=== PATIENT | female | born 1960 | race Caucasian/White ===

== ENCOUNTER → 2016-07-25 | Outpatient (CLI) | payer MEDICARE, MEDICAID ==
[2016-01-03 07:38] VITALS: BP 118/70
[~2016-07-25] MED LIST: HYDR-971 PO
--- NOTE | 2016-07-27 09:08 | RAD ---
DATE: 07/25/2016 EXAM: MAMMO JIGAR SCREENING BILATERAL HISTORY: Routine screening, history of bilateral breast reduction COMPARISON: None available. This is dictated as a baseline exam This study was interpreted with the benefit of Computerized Aided Detection (CAD). FINDINGS: Breast Density: FATTY The Breast Parenchyma is primarily fatty replaced. Breast parenchyma level density A.. There are no dominant suspicious masses, suspicious microcalcifications or evidence of architectural distortion. Scattered benign-appearing calcifications identified in the bilateral breasts. Left breast biopsy marker identified. IMPRESSION: Benign findings BI-RADS CATEGORY: 2 BENIGN FINDING RECOMMENDED FOLLOW-UP: 12M 12 MONTH FOLLOW-UP PQRS compliance statement: Patient information was entered into a reminder system with a target due date 07/25/2017 for the next mammogram. Mammography is a sensitive method for finding small breast cancers, but it does not detect them all and is not a substitute for careful clinical examination. A negative mammogram does not negate a clinically suspicious finding and should not result in delay in biopsying a clinically suspicious abnormality. "Our facility is accredited by the [employer] Mammography Program."
== END | disposition home or self-care (01) ==
LOC: MAMMO 14:32
PROVIDERS: ATTEND Family Medicine
DX: Z12.31 Encounter for screening mammogram for malignant neoplasm of breast (principal)
CPT/HCPCS: 77063; G0202; 77067

== ENCOUNTER → 2018-01-28 | Outpatient (CLI) | payer OTHER, MEDICAID ==
[2016-01-03 07:38] VITALS: BP 118/70
[~2018-01-28] MED LIST changes: +HYDR-3165 PO; -HYDR-971 PO
--- NOTE | 2018-01-28 15:05 | CARD ---
MR#: [id number] Date of Study: 01/28/2018 Ordering Physician: JACKY GONSALEZ, Referring Physician: JACKY GONSALEZ, Tech: Asiya Marsh [facility] APPROVED REPORT EXAM: Two-dimensional and M-mode echocardiogram with Doppler and color Doppler. Other Information Quality : Technically LimitedHR: 55bpm Rhythm : NSRTechnically limited study due to smoking. INDICATION Murmur 2D DIMENSIONS RVDd3.0 (2.9-3.5cm)Left Atrium(2D)3.4 (1.6-4.0cm) IVSd1.2 (0.7-1.1cm)Aortic Root(2D)3.0 (2.0-3.7cm) LVDd4.5 (3.9-5.9cm)LVOT Diameter2.1 (1.8-2.4cm) PWd1.1 (0.7-1.1cm)LVDs2.8 (2.5-4.0cm) FS (%) 37.3 %SV62.5 ml LVEF(%)67.4 (>50%) M-Mode DIMENSIONS Left Atrium(MM)3.42 (2.5-4.0cm)Aortic Root3.32 (2.2-3.7cm) Aortic Valve AoV Peak Lito.208.6cm/sAoV VTI50.0cm AO Peak GR.17.4mmHgLVOT Peak Lito.82.9cm/s LVOT VTI 22.07cmAO Mean GR.11mmHg JOSHUA (VMAX)1.06cl6CPL (VTI)1.59cm2 Mitral Valve MV E Tcwqwdot87.9cm/sMV DECEL [id number] MV A Vghdzado43.3cm/sE/A Ratio1.0 MV A Gcyqjokv350wu Pulmonary Valve PV Peak Eauckxdw35.3cm/sPV Peak Grad.3mmHg Pulmonary Vein S1 Ooipgxib41.3cm/sD2 Llevqvgh95.4cm/s LEFT VENTRICLE The left ventricle is normal size. There is borderline to mild concentric left ventricular hypertroph y. The left ventricular systolic function is normal and the ejection fraction is within normal range. The Ejection Fraction is 60-65%. There is normal LV segmental wall motion. Transmitral Doppler flow pattern is Grade II-pseudonormal filling dynamics. RIGHT VENTRICLE The right ventricle is normal size. There is normal right ventricular wall thickness. The right ventr icular systolic function is normal. ATRIA The left atrium size is normal. The right atrium size is normal. The interatrial septum is intact wit h no evidence for an atrial septal defect or patent foramen ovale as noted on 2-D or Doppler imaging. AORTIC VALVE Moderate to heavy calcification of the aortic valve which appears trileaflet. Doppler and Color Flow revealed no significant aortic regurgitation. There is mild valvular aortic stenosis. Calculated aort ic valve area is 1.5 cm2 with maximum pressure gradient of 17 mmHg and mean pressure gradient of 11 m mHg. MITRAL VALVE The mitral valve is normal in structure and function. There is no evidence of mitral valve prolapse. There is no mitral valve stenosis. Doppler and Color-flow revealed trace mitral regurgitation. TRICUSPID VALVE The tricuspid valve is normal in structure and function. Doppler and Color Flow revealed no tricuspid valve regurgitation noted. There is no tricuspid valve prolapse or vegetation. There is no tricuspid valve stenosis. PULMONIC VALVE Pulmonic valve not well visualized. Doppler and Color Flow revealed trace pulmonic valvular regurgita tion. There is no pulmonic valvular stenosis. GREAT VESSELS The aortic root is normal in size. The ascending aorta is normal in size. The IVC is normal in size a nd collapses >50% with inspiration. PERICARDIAL EFFUSION There is no evidence of significant pericardial effusion. Critical Notification Critical Value: No <Conclusion> The left ventricular systolic function is normal and the ejection fraction is within normal range. Th e Ejection Fraction is 60-65%. There is normal LV segmental wall motion. There is mild valvular aortic stenosis. Calculated aortic valve area is 1.5 cm2 with maximum pressure gradient of 17 mmHg and mean pressure gradient of 11 mmHg. Signed by : Yonatan Dsouza, Electronically Approved : 01/28/2018 15:03:53
== END | disposition home or self-care (01) ==
LOC: ECHO 13:42
PROVIDERS: ATTEND Nurse Practitioner Family
DX: I35.0 Nonrheumatic aortic (valve) stenosis (principal); I70.0 Atherosclerosis of aorta; F17.200 Nicotine dependence, unspecified, uncomplicated
CPT/HCPCS: 93306

== ENCOUNTER → 2018-03-06 | Outpatient (CLI) | payer OTHER, MEDICAID ==
[2016-01-03 07:38] VITALS: BP 118/70
[~2018-03-06] VITALS: Ht 170.2 cm; Wt 84.4 kg
[~2018-03-06] MED LIST changes: +REGADENOSON 0.4 MG/5 ML DISP.SYRIN. IV ONE
--- NOTE | 2018-03-06 13:41 | RAD ---
MR#: [id number] Date of Study: 03/06/2018 Ordering Physician: ANGELINA CRUZ, Referring Physician: TORRIE ARSHAD Tech: SAMEERA Davies ARRT (R) (N) APPROVED REPORT Test Type: Pharmacological Stress Nurse/Tech: TRICIA Barr/ÁLVARO Davies Test Indications: HTN, HYPERLIPIDEMIA Cardiac History: High cholesterol, Hypertension, Diabetes Medications: See Electronic Medical Record Medical History: See Electronic Medical Record Resting ECG: SR Resting Heart Rate: 55 bpm Resting Blood Pressure: 151/72mmHg Pretest Chest Pain: None Nurse/Tech Notes SR Consent: The procedure was explained to the patient in lay terms. Informed consent was witnessed. Jun eout was entered into [employer]. History and Stress Test performed by SAMEERA Davies ARRT (R) (N) Pharm. Details Pharmacologic stress testing was performed using 0.4mg per 5ml of regadenoson given intravenously ove r 7-10 seconds. Stress Symptoms Dyspnea POST EXERCISE Reason for Termination: Infusion complete Target HR: Yes Max HR: 195 bpm 142% of Maximum Predicted HR: 137 bpm Exercise duration: 6 min:sec, Stage Max Blood Pressure: 164/81mmHg Blood Pressure response to exercise: Normal blood pressure response during stress. Chest Pain: No. Arrhythmia: No. ST Change: No. INTERPRETATION Stress EKG Conclusion: Baseline EKG showed sinus rhythm. No ischemic changes at peak stress. No arr hythmias. Imaging Protocol IMAGE PROTOCOL: Rest Tc-99m/stress Tc-99m 1 day Rest: Stress: Viability: Radiopharm.Tc99m GoryplugqWm92r Sestamibi Dose11.4mCi 32mCi Img Date 03/06/2018 03/06/2018 Inj-Img [id number]. 60min. Rest Admin Site:IV - Right AntecubitalAdministrator: SAMEERA Davies ARRT (R)(N) Stress Admin Site: IV - Right AntecubitalAdministrator: SAMEERA Davies ARRT (Altagracia)(N) STRESS DATA End Diast. Vol.88.0mlAv. Heart Rate66.0bpm LVEDV index BSA2.0mlCardiac Output0.1L/min End Syst. Vol.16.0mlCO Index BSA4.7L/min LVESV index BSA0.0mlMyocardial Cetc910.0g Eject. Kyshmast49.0% Stress Rates Pk. Fill Rate2.57EDV/secLVtime Pk. Fill 173.45msec Pk. Empty Rate3.35ESV/secLVtime Pk. Vxola335.89msec 03/13 Pk. Fill1.49EDV/sec Stress Scores Regional WT0.00Summed WT3.00 Regional WM0.00Summed WM0.00 LV Perfusion Scintigraphic images were technically difficult but appeared to show small reversible defect involvin g the apical wall consistent with ischemia. Wall Motion Normal left ventricle systolic function with ejection fraction calculated at 80%. LV Perf. Quant 17 Seg. SSS9.00 17 Seg. SRS1.00 17 Seg. SDS8.00 Stress Defect Extent (% LAD)9.40Rest Defect Extent (% LAD)0.00Rev. Defect Extent (% LAD)9.40 Stress Defect Extent (% LCX) 55.00Rest Defect Extent (% LCX)0.00Rev. Defect Extent (% LCX)55.00 Stress Defect Extent (% RCA)3.30Rest Defect Extent (% RCA)0.00Rev. Defect Extent (% RCA)3.30 Stress Defect Extent (% DENNISE)19.30Rest Defect Extent (% DENNISE)0.00Rev. Defect Extent (% DENNISE)19.30 Conclusion 1. Regadenoson cardioisotope stress test technically difficult but appeared to show small amount of a pical wall ischemia. 2. Normal left ventricular systolic function with ejection fraction calculated at 82%. 3. Low to intermediate risk for cardiac events. Signed by : Angelina Cruz, Electronically Approved : 03/06/2018 13:40:27
== END | disposition home or self-care (01) ==
LOC: NM 07:39
PROVIDERS: ATTEND Internal Medicine Cardiovascular Disease
DX: E78.5 Hyperlipidemia, unspecified (principal); E78.00 Pure hypercholesterolemia, unspecified; I10 Essential (primary) hypertension; E11.9 Type 2 diabetes mellitus without complications; F17.210 Nicotine dependence, cigarettes, uncomplicated
CPT/HCPCS: 78452; 93017; 96374; 96375; 96376; A9500; J2785

== ENCOUNTER → 2019-10-20 | Outpatient (CLI) | payer MEDICARE ==
[2016-01-03 07:38] VITALS: BP 118/70
[~2019-10-20] MED LIST changes: -REGADENOSON 0.4 MG/5 ML DISP.SYRIN. IV ONE
[2019-10-20 12:10] LABS: BASO # 0.1 x10^3/uL (0.0-0.2); BASO % 1 % (0-3); EOS # 0.3 x10^3/uL (0.0-0.7); EOS % 4 % (0-3); HEMATOCRIT 45.1 % (36.0-47.0); HEMOGLOBIN 15.2 g/dL (12.0-15.5); LYMPH # 2.8 x10^3/uL (1.0-4.8); LYMPH % 31 % (24-48); MEAN CORPUSCULAR HEMOGLOBIN 32 pg (25-35); MEAN CORPUSCULAR HGB CONC 34 g/dL (31-37); MEAN CORPUSCULAR VOLUME 96 fL (79-100); MONO # 0.5 x10^3/uL (0.0-1.1); MONO % 5 % (0-9); NEUT # 5.3 x10^3uL (1.8-7.7); NEUT % 59 % (31-73); PLATELET COUNT 217 x10^3/uL (140-400); RED CELL DISTRIBUTION WIDTH 13.6 % (11.5-14.5)
[2019-10-20 12:20] LABS: GFR 56.6; POTASSIUM 4.3 mmol/L (3.5-5.1); TOTAL BILIRUBIN 0.5 mg/dL (0.2-1.0)
[2019-10-20 16:25] LABS: FREE T4 1.08 ng/dL (0.76-1.46); THYROID STIM HORMONE (TSH) 4.733 uIU/mL (0.358-3.740)
[2019-10-21 02:07] LABS: HEMOGLOBIN A1C 7.7 % (4.8-5.6)
== END | disposition home or self-care (01) ==
LOC: LAB 10:03
PROVIDERS: ATTEND Physician Assistant
DX: Z79.899 Other long term (current) drug therapy (principal)
CPT/HCPCS: 36415; 80053; 80061; 80178; 83036; 84439; 84443; 84480; 85025

== ENCOUNTER → 2019-10-20 | Outpatient (CLI) | payer MEDICARE ==
[2016-01-03 07:38] VITALS: BP 118/70
--- NOTE | 2019-10-20 17:28 | RAD ---
HIP RIGHT 2 VIEW History: Fall, right hip pain Comparison: None. Findings: 2 views of the right hip are submitted. No convincing acute fracture or dislocation is identified by radiographs. There is some ossific irregularity along the anterior margin of the greater trochanter although fairly corticated margin. There is inferior lumbar degenerative disc disease and spondylosis Impression: 1. No convincing acute fracture is identified by radiographs, some irregularity of the right greater trochanter anteriorly although believed to be old. If there is persistent pain, MRI or CT evaluation may be beneficial. Electronically signed by: Neptali Cruz MD (10/20/2019 5:25 PM) [id number]
== END | disposition home or self-care (01) ==
LOC: PMG 12:28
PROVIDERS: ATTEND Family Medicine
DX: M25.551 Pain in right hip (principal); M51.36 Other intervertebral disc degeneration, lumbar region; M47.816 Spondylosis without myelopathy or radiculopathy, lumbar region
CPT/HCPCS: 73502

== ENCOUNTER → 2019-10-21 | Outpatient (CLI) | payer MEDICARE ==
[2016-01-03 07:38] VITALS: BP 118/70
--- NOTE | 2019-10-21 14:33 | RAD ---
Single standing AP view both knees and 2 views left knee without comparison for left knee pain. FINDINGS: There is no fracture, dislocation, or acute osseous abnormality of either knee. On the left, there is advanced osteoarthritis involving primarily the medial joint compartment, with more moderate osteoarthritic changes involving the lateral joint compartment and the patellofemoral compartments. On the right, there is minimal osteoarthritis. IMPRESSION: 1. Tricompartmental osteoarthritis on the left, with findings most notable at the medial joint compartment where there are advanced. Electronically signed by: Krishna Araujo MD (10/21/2019 2:30 PM) [id number]
== END | disposition home or self-care (01) ==
LOC: DXRAD 13:52
PROVIDERS: ATTEND Orthopaedic Surgery
DX: M17.12 Unilateral primary osteoarthritis, left knee (principal)
CPT/HCPCS: 73560; 73565

== ENCOUNTER → 2020-09-05 | Outpatient (CLI) | payer MEDICARE ==
[2016-01-03 07:38] VITALS: BP 118/70
--- NOTE | 2020-09-05 09:56 | RAD ---
EXAM: Bilateral lower extremity arterial Doppler sonogram. HISTORY: Claudication. Cigarette smoking history. Diabetes. Atherosclerosis. TECHNIQUE: Melo scale and color Doppler sonographic imaging lower extremity arteries with spectral an alysis was performed. COMPARISON: None. FINDINGS: There are biphasic and triphasic waveforms throughout the lower extremity arteries. There i s an elevated peak systolic velocity within the left common femoral artery, measuring 175 cm/s. There are normal peak systolic velocities throughout the remainder of the lower extremity arteries. There is no arterial occlusion. There is a prominent left inguinal lymph node measuring 3.8 cm. This mainta ins a benign fatty hilum and thin cortex, favoring a physiologic etiology. IMPRESSION: Doppler findings suggesting mild stenosis involving the right common femoral artery. No a dditional hemodynamically significant stenosis or arterial occlusion is seen. Electronically signed by: Ingrid Lewis MD (09/05/2020 9:54 AM) [id number]
== END ==
LOC: US 08:39
PROVIDERS: ATTEND Family Medicine
DX: I70.213 Atherosclerosis of native arteries of extremities with intermittent claudication, bilateral legs (principal); R59.0 Localized enlarged lymph nodes
CPT/HCPCS: 93925

== ENCOUNTER 2020-12-30 11:41 | Emergency (ER) | payer MEDICARE ==
[~2020-12-30] VITALS: Ht 165.1 cm; Wt 85.0 kg
[2020-12-30 11:59] VITALS: BP 136/73
--- NOTE | 2020-12-30 12:25 | PHYS DOC ---
Past History Past Medical History: Diabetes, Hypertension Past Surgical History: No Surgical History Alcohol Use: Rarely Drug Use: None General Adult EDM: Chief Complaint: MECHANICAL FALL HPI: HPI: Patient is a 60-year-old female who presents to the emergency department for left sided rib pain. Patient reports that on Saturday she tripped over a wheelchair and fell and started having left-sided rib pain yesterday. Patient rates her pain 9 out of 10. She has been taking ibuprofen. She denies nausea, vomiting, shortness of breath, hitting her head, loss of consciousness. Review of Systems: Review of Systems: HENT: See HPI Respiratory: See HPI Cardiovascular: see hpi Musculoskeletal: See HPI Neurologic: See HPI Allergies: Allergies: Allergies Coded Allergies Type Severity Reaction Last Updated Verified No Known Drug Allergies 12/30/20 No Physical Exam: PE: Constitutional: Well developed, well nourished, no acute distress, non-toxic appearance. [] HENT: Normocephalic, atraumatic, bilateral external ears normal, oropharynx moist, no oral exudates, nose normal. [] Eyes: PERRL, EOMI, conjunctiva normal, no discharge. [] Neck: Normal range of motion, no tenderness, supple, no stridor. [] Cardiovascular:Heart rate regular rhythm, no murmur [] Lungs & Thorax: Bilateral breath sounds clear to auscultation, no flail chest, no crepitus, pain with palpation to left lower posterior ribs [] Abdomen: Bowel sounds normal, soft, no tenderness, no masses, no pulsatile masses. [] Skin: Warm, dry, no erythema, no rash. [] Back: No tenderness, normal range of motion Extremities: No tenderness, no cyanosis, no clubbing, ROM intact, no edema. [] Neurologic: Alert and oriented X 3, normal motor function, normal sensory function, no focal deficits noted. [] Psychologic: Affect normal, judgement normal, mood normal. [] Current Patient Data: Vital Signs: Vital Signs Date Time Temp Pulse Resp B/P (MAP) Pulse Ox O2 Delivery O2 Flow Rate FiO2 12/30/20 11:59 98.2 65 18 136/73 (94) 95 Room Air EKG: EKG: [] Radiology/Procedures: Radiology/Procedures: []PROCEDURE: RIBS LEFT 2 view left rib detail series Clinical indications: Left-sided rib pain FINDINGS: There are nondisplaced fractures of the lateral aspect of the left sixth rib and the lateral aspect of the left fifth rib and the lateral aspect of the left 11th rib. No pleural effusion or pneumothorax is seen within the left side. IMPRESSION: Left rib cage fractures. Electronically signed by: Lionel Augustin MD (12/30/2020 12:28 PM) [id number] DICTATED AND SIGNED BY: LIONEL AUGUSTIN MD DATE: 12/30/20 1226 CC: VICENTE MANZANO APRN; KACIE ASCENCIO MD ~MTH0 0 Heart Score: C/O Chest Pain: N/A Risk Factors: Risk Factors: DM, Current or recent (<one month) smoker, HTN, HLP, family history of CAD, obesity. Risk Scores: Score 0 - 3: 2.5% MACE over next 6 weeks - Discharge Home Score 4 - 6: 20.3% MACE over next 6 weeks - Admit for Clinical Observation Score 7 - 10: 72.7% MACE over next 6 weeks - Early Invasive Strategies Course & Med Decision Making: Course & Med Decision Making Pertinent Labs and Imaging studies reviewed. (See chart for details) [] Patient presents to the emergency department for left-sided rib pain after falling 5 days ago. An x-ray was performed of her ribs that showed nondisplaced left fifth, sixth and 11th rib fractures. Patient given incentive spirometer and training.Patient is stable and well appearing, she is ambulatory with steady gait. Patient discharged home with pain medication. Patient advised to take ibuprofen for her mild pain.advised to apply ice. Advised to follow-up with her primary care provider. I discussed with patient all findings and diagnostic testing as well as the need to follow-up with PCP for further evaluation and treatment or return to the ER if any new or worsening symptoms. Strict return precautions were also discussed at length. Patient voiced understanding and agreement with the plan. Patient is hemodynamically stable at the time of disposition. Dragon Disclaimer: Dragjoyce Disclaimer: This electronic medical record was generated, in whole or in part, using a voice recognition dictation system. Departure Departure: Impression: Primary Impression: Rib fracture Qualified Codes: S22.42XA - Multiple fractures of ribs, left side, initial encounter for closed fracture Disposition: HOME / SELF CARE / HOMELESS Condition: GOOD Referrals: KACIE ASCENCIO MD (PCP) Patient Instructions: Rib Fracture Additional Instructions: You were seen in the emergency department for left-sided rib pain following a fall. An x-ray was performed that showed left 5th, 6th, and 11th rib fractures. You can take Ibuprofen for mild pain and are being discharged home with [place] for severe pain. This medication is hydrocodone and Tylenol combination tablet. Do not take any additional Tylenol with this medication. Do not take this medication when you need to be alert, driving a vehicle or with alcohol as it may cause sedation. You were provided with an incentive spirometer training in the emergency department please use this as directed at home to help prevent developing a pneumonia. You can also apply ice or heating pads. Please follow- up with your primary care provider tomorrow regarding your ER visit. Return to the emergency department if you develop worsening of your pain, chest pain, shortness of breath, high fevers refractory to treatment, cough pain or worsening concerns. EMERGENCY DEPARTMENT GENERAL DISCHARGE INSTRUCTIONS Thank you for coming to [facility] (ED) today and trusting us with you care. We trust that you had a positivie experience in our Emergency Department. If you wish to speak to the department management, you may call the director at [phone]. YOUR FOLLOW UP INSTRUCTIONS ARE FOLLOWS: 1. Do you have a private Doctor? If you do not have a private doctor, please ask for a resource list of physicians or clinics that may be able to assist you with follow up care. 2. The Emergency Physician has interpreted your x-rays. The X-Ray specialist will also review them. If there is a change in the findings, you will be notified in 48 hours when at all possible. 3. A lab test or culture has been done, your results will be reviewed and you will be notified if you need a change in treatment. ADDITIONAL INSTRUCTIONS AND INFORMATION: 1. Your care today has been supervised by a physician who is specially trained in emergency care. Many problems require more than one evaluation for a complete diagnosis and treatment. We recommend that you schedule your follow up appointment as recommended to ensure complete treatment of you illness or injury. If you are unable to obtain follow up care and continue to have a problem, or if your condition worsens, we recommend that you return to the ED. 2. We are not able to safely determine your condition over the phone nor are we able to give sound medical advice over the phone. For these safety reasons, if you call for medical advice we will ask you to come to the ED for further evaluation. 3. If you have any questions regarding these discharge instructions please call the ED at [phone]. SAFETY INFORMATION: In the interest of safety, wellness, and injury prevention; we encourage you to wear your sealbelt, if you smoke; quite smoking, and we encourage family to use a protective helmet for bicycling and other sporting events that present an increased risk for head injury. IF YOUR SYMPTOMS WORSEN OR NEW SYMPTOMS DEVELOP, OR YOU HAVE CONCERNS ABOUT YOUR CONDITION; OR IF YOUR CONDITION WORSENS WHILE YOU ARE WAITING FOR YOUR FOLLOW UP APPOINTMENT; EITHER CONTACT YOUR PRIMARY CARE DOCTOR, THE PHYSICIAN WHOSE NAME AND NUMBER YOU WERE GIVEN, OR RETURN TO THE ED IMMEDIATELY. Scripts Hydrocodone Bit/Acetaminophen (HYDROCODONE-APAP 5-325 ) 1 Each Tablet 1 TAB PO PRN Q6HRS PRN for PAIN for 3 Days, #12 TAB 0 Refills Prov: VICENTE MANZANO APRN 12/30/20 VICENTE MANZANO APRN Dec 30, 2020 12:25
--- NOTE | 2020-12-30 12:31 | RAD ---
2 view left rib detail series Clinical indications: Left-sided rib pain FINDINGS: There are nondisplaced fractures of the lateral aspect of the left sixth rib and the latera l aspect of the left fifth rib and the lateral aspect of the left 11th rib. No pleural effusion or pn eumothorax is seen within the left side. IMPRESSION: Left rib cage fractures. Electronically signed by: Willard Augustin MD (12/30/2020 12:28 PM) [id number]
[2020-12-30] MEDS ORDERED: HYDR-2155 PO (12:47)
== END 2020-12-30 12:55 | disposition home or self-care (01) ==
LOC: ER 11:41
DX: S22.42XA Multiple fractures of ribs, left side, initial encounter for closed fracture (principal); E11.9 Type 2 diabetes mellitus without complications; I10 Essential (primary) hypertension; W01.0XXA Fall on same level from slipping, tripping and stumbling without subsequent striking against object, initial encounter; Y93.89 Activity, other specified; Y92.89 Other specified places as the place of occurrence of the external cause; Y99.8 Other external cause status
CPT/HCPCS: 71100; 99283-25

== ENCOUNTER 2021-03-16 16:27 | Inpatient (IN) | payer MEDICARE ==
[~2021-03-16] VITALS: Ht 170.2 cm; Wt 79.6 kg
[~2021-03-16 16:27] MED LIST changes: +HYDR-2155 PO
[2021-03-16] MEDS ORDERED: IV NORMAL SALINE 1,000ML 1,000 ML IV ONE ×4 (16:45→19:30)
[2021-03-16 17:40] LABS: BASO # 0.1 x10^3/uL (0.0-0.2); BASO % 1 % (0-3); EOS # 0.2 x10^3/uL (0.0-0.7); EOS % 1 % (0-3); HEMATOCRIT 37.6 % (36.0-47.0); HEMOGLOBIN 12.3 g/dL (12.0-15.5); LYMPH # 1.1 x10^3/uL (1.0-4.8); LYMPH % 7 % (24-48); MEAN CORPUSCULAR HEMOGLOBIN 31 pg (25-35); MEAN CORPUSCULAR HGB CONC 33 g/dL (31-37); MEAN CORPUSCULAR VOLUME 96 fL (79-100); MONO # 0.8 x10^3/uL (0.0-1.1); MONO % 5 % (0-9); NEUT # 13.4 x10^3uL (1.8-7.7); NEUT % 86 % (31-73); PLATELET COUNT 217 x10^3/uL (140-400); RED BLOOD COUNT 3.91 x10^6/uL (3.50-5.40); RED CELL DISTRIBUTION WIDTH 13.5 % (11.5-14.5); WHITE BLOOD COUNT 15.6 x10^3/uL (4.0-11.0)
[2021-03-16 17:46] LABS: CALCIUM 9.5 mg/dL (8.5-10.1); CREATININE 3.2 mg/dL (0.6-1.0); GFR 14.7; POTASSIUM 3.4 mmol/L (3.5-5.1)
--- NOTE | 2021-03-16 17:46 | RAD ---
STUDY: CT head without contrast INDICATION: Altered mental status. COMPARISON: None. TECHNIQUE: Axial CT imaging through the head without the use of intravenous contrast. Sagittal and co sonido reformats were obtained. One or more of the following individualized dose reduction techniques were utilized for this examinat ion: 1. Automated exposure control 2. Adjustment of the mA and/or kV according to patient size 3. Use of iterative reconstruction technique. FINDINGS: No acute intracranial hemorrhage. No CT evidence for an acute cortical infarction. No mass effect, mi dline shift or hydrocephalus. Carotid siphon calcific atherosclerosis. Sequela of a remote right fron ruth ann craniotomy. Mucosal thickening and fluid within the paranasal sinuses. IMPRESSION: 1. No acute intracranial abnormality by CT. 2. Layering fluid and mucosal thickening involving the paranasal sinuses can be seen in the setting of active sinusitis. Electronically signed by: ELVIA PEREZ MD (03/16/2021 5:44 PM) [facility]
[2021-03-16 17:50] LABS: BARBITURATES NEG (NEG); BENZODIAZEPINES NEG (NEG); CANNABINOIDS POS (NEG); COCAINE NEG (NEG); METHADONE NEG (NEG); OPIATES NEG (NEG); PHENCYCLIDINE NEG (NEG)
[2021-03-16 17:54] LABS: ALBUMIN 2.5 g/dL (3.4-5.0); ALBUMIN/GLOBULIN RATIO 0.5 (1.0-1.7); MAGNESIUM 2.3 mg/dL (1.8-2.4); TOTAL BILIRUBIN 0.4 mg/dL (0.2-1.0); TOTAL PROTEIN 7.2 g/dL (6.4-8.2)
[2021-03-16 17:55] LABS: AMPHETAMINE/METHAMPHETAMINE NEG (NEG)
--- NOTE | 2021-03-16 18:09 | RAD ---
XR CHEST 1V History: Reason: AMS / Spl. Instructions: / History: Comparison: December 15, 2010 Findings: Patchy left mid lung opacities. Prominence the right hilum. No pleural effusion. No pneumothorax. Nor mal heart size. Impression: 1. Patchy left midlung opacities, represent pneumonia. Recommend follow-up to ensure resolution. 2. Prominence of the right hilar, may relate to enlarged vasculature, lymphadenopathy or mass. Recom mend attention on follow-up. Alternatively, CT can further evaluate. Electronically signed by: Stevenson Etienne DO (03/16/2021 6:07 PM) [facility]LISA
--- NOTE | 2021-03-16 18:11 | EKG ---
[address] [address] Test Date: 2021-03-16 Test Time: 16:52:43 Pat Name: MARCELO RUSH Department: Room: Gender: F Except[employer] Needs Teacher: ESDRAS : 1960 Requested By: NEETA CHEUNG Order Number: [id number] Reading MD: Torres Gamboa Measurements Intervals [place] Rate: 71 P: 8 ND: 162 QRS: 44 QRSD: 90 T: 51 QT: 400 QTc: 440 Interpretive Statements SINUS RHYTHM NORMAL ECG RI6.02 No previous ECG available for comparison Electronically Signed On 03-17-2021 14:30:49 [employer] by Torres Gamboa
--- NOTE | 2021-03-16 18:37 | PHYS DOC ---
Past History Past Medical History: Diabetes, Hypertension (STACIE CHEUNG APRN) Past Medical History: Dementia, Diabetes (NIRALI GARCIA MD) Past Surgical History: No Surgical History (STACIE CHEUNG APRN) Alcohol Use: Rarely Drug Use: None (STACIE CHEUNG APRN) Adult General Chief Complaint Chief Complaint: HYPERGLYCEMIA HPI HPI Patient is a 60-year-old female patient with history of diabetes type 2, hypertension, who presents to the ED today via EMS to be evaluated for hyperglycemia and altered mental status. It is unknown how long symptoms have been going on. I am getting most of my information from the RN. EMS states patient is noncompliant with his diabetes and hypertension treatment. (STACIE CHEUNG APRN) Review of Systems Review of Systems Constitutional: Unable to assess due to mentation Eyes: Unable to assess due to mentation HENT: Unable to assess due to mentation Respiratory: Unable to assess due to mentation Cardiovascular: Unable to assess due to mentation GI: Unable to assess due to mentation : Unable to assess due to mentation Musculoskeletal: Unable to assess due to mentation Integument: Unable to assess due to mentation Neurologic: EMS reports altered mental status Endocrinology: EMS reports hyperglycemia All other systems were reviewed and found to be within normal limits, except as documented in this note. (STACIE CHEUNG APRN) Current Medications Current Medications Current Medications Medications (Trade) Dose Ordered Sig/Ramirez Start Time Stop Time Status Last Admin Dose Admin Sodium Chloride 1,000 ml @ 1,000 mls/hr 1X ONCE 03/16/21 16:45 03/16/21 17:44 DC (STACIE CHEUNG APRN) Allergies Allergies Allergies Coded Allergies Type Severity Reaction Last Updated Verified No Known Drug Allergies 12/30/20 No (STACIE CHEUNG APRN) Physical Exam Physical Exam Constitutional: Well developed, well nourished, no acute distress, non-toxic appearance. [] HENT: Normocephalic, atraumatic, bilateral external ears normal, no oral exudates, nose normal. Dry oropharynx, cracked lips Eyes: PERRLA, EOMI, conjunctiva normal, no discharge. [] Neck: Normal range of motion, no tenderness, supple, no stridor. [] Cardiovascular:Heart rate regular rhythm Lungs & Thorax: Bilateral breath sounds clear to auscultation [] Abdomen: Bowel sounds normal, soft, no tenderness, no masses, no pulsatile masses. [] Skin: Warm, dry, no erythema, no rash. [] Back: No tenderness, no CVA tenderness. [] Extremities: No tenderness, no cyanosis, no clubbing, ROM intact, no edema. [] Neurologic: Alert and oriented X 2, normal motor function, normal sensory function, no focal deficits noted. Cranial nerves II through XII intact Psychologic: Affect normal, judgement normal, mood normal. [] (JONATANSTACIE Baum PANTRY GOODS WORKER) Current Patient Data Vital Signs Vital Signs Date Time Temp Pulse Resp B/P (MAP) Pulse Ox O2 Delivery O2 Flow Rate FiO2 03/16/21 16:53 97.6 73 16 121/56 (77) 95 Lab Results Laboratory Tests Test 03/16/21 16:30 03/16/21 17:05 Glucose (Fingerstick) 481 mg/dL (70-99) H White Blood Count 15.6 x10^3/uL (4.0-11.0) H Red Blood Count 3.91 x10^6/uL (3.50-5.40) Hemoglobin 12.3 g/dL (12.0-15.5) Hematocrit 37.6 % (36.0-47.0) Mean Corpuscular Volume 96 fL (79-100) Mean Corpuscular Hemoglobin 31 pg (25-35) Mean Corpuscular Hemoglobin Concent 33 g/dL (31-37) Red Cell Distribution Width 13.5 % (11.5-14.5) Platelet Count 217 x10^3/uL (140-400) Neutrophils (%) (Auto) 86 % (31-73) H Lymphocytes (%) (Auto) 7 % (24-48) L Monocytes (%) (Auto) 5 % (0-9) Eosinophils (%) (Auto) 1 % (0-3) Basophils (%) (Auto) 1 % (0-3) Neutrophils # (Auto) 13.4 x10^3uL (1.8-7.7) H Lymphocytes # (Auto) 1.1 x10^3/uL (1.0-4.8) Monocytes # (Auto) 0.8 x10^3/uL (0.0-1.1) Eosinophils # (Auto) 0.2 x10^3/uL (0.0-0.7) Basophils # (Auto) 0.1 x10^3/uL (0.0-0.2) Platelet Estimate Pending Sodium Level 131 mmol/L (136-145) L Potassium Level 3.4 mmol/L (3.5-5.1) L Chloride Level 96 mmol/L (98-107) L Carbon Dioxide Level 21 mmol/L (21-32) Anion Gap 14 (6-14) Blood Urea Nitrogen 49 mg/dL (7-20) H Creatinine 3.2 mg/dL (0.6-1.0) H Estimated GFR (Cockcroft-Gault) 14.7 BUN/Creatinine Ratio 15 (6-20) Glucose Level 469 mg/dL (70-99) H Calcium Level 9.5 mg/dL (8.5-10.1) Magnesium Level 2.3 mg/dL (1.8-2.4) Total Bilirubin 0.4 mg/dL (0.2-1.0) Aspartate Amino Transferase (AST) 16 U/L (15-37) Alanine Aminotransferase (ALT) 18 U/L (14-59) Alkaline Phosphatase 123 U/L (46-116) H Total Protein 7.2 g/dL (6.4-8.2) Albumin 2.5 g/dL (3.4-5.0) L Albumin/Globulin Ratio 0.5 (1.0-1.7) L Urine Opiates Screen Neg (NEG) Urine Methadone Screen Neg (NEG) Urine Barbiturates Neg (NEG) Urine Phencyclidine Screen Neg (NEG) Urine Amphetamine/Methamphetamine Neg (NEG) Urine Benzodiazepines Screen Neg (NEG) Urine Cocaine Screen Neg (NEG) Urine Cannabinoids Screen Pos (NEG) Urine Ethyl Alcohol Neg (NEG) (STACIE CHEUNG PANTRY GOODS WORKER) EKG EKG [address] Cortes sinus rhythm heart rate 71 no STEMI [] (STACIE CHEUNG APRN) EKG EKG ordered and interpreted by myself at 1351 hrs. as sinus rhythm at 75 bpm, unremarkable intervals, no axis deviation, no obvious ischemic findings, no STEMI (BRYAN CORTES DO) Radiology/Procedures Radiology/Procedures []PROCEDURE: CT HEAD WO CONTRAST STUDY: CT head without contrast INDICATION: Altered mental status. COMPARISON: None. TECHNIQUE: Axial CT imaging through the head without the use of intravenous contrast. Sagittal and coronal reformats were obtained. One or more of the following individualized dose reduction techniques were utilized for this examination: 1. Automated exposure control 2. Adjustment of the mA and/or kV according to patient size 3. Use of iterative reconstruction technique. FINDINGS: No acute intracranial hemorrhage. No CT evidence for an acute cortical infarction. No mass effect, midline shift or hydrocephalus. Carotid siphon calcific atherosclerosis. Sequela of a remote right frontal craniotomy. Mucosal thickening and fluid within the paranasal sinuses. IMPRESSION: 1. No acute intracranial abnormality by CT. 2. Layering fluid and mucosal thickening involving the paranasal sinuses can be seen in the setting of active sinusitis. Electronically signed by: ELVIA PEREZ MD (03/16/2021 5:44 PM) [facility] DICTATED AND SIGNED BY: ELVIA PEREZ MD DATE: 03/16/211739 CC: STACIE CHEUNG APRN; KACIE ASCENCIO MD ~MTH0 0 (STACIE CHEUNG APRN) Heart Score C/O Chest Pain: N/A Risk Factors: Risk Factors: DM, Current or recent (<one month) smoker, HTN, HLP, family history of CAD, obesity. Risk Scores: Risk Factors: DM, Current or recent (<one month) smoker, HTN, HLP, family history of CAD, obesity. (STACIE CHEUNG APRN) Course & Med Decision Making Course & Med Decision Making Pertinent Labs and Imaging studies reviewed. (See chart for details) This is a 60-year-old noncompliant type II diabetic, presenting today to be evaluated for hypoglycemia and altered mental status. Patient is alert and oriented x1-2. She appears very dehydrated with dry mucous membranes. Vitals on arrival to the ED temperature 97.6 heart rate 73, blood pressure 121/56, O2 sats 95%. CT of the head is negative for any acute findings, noted for sinusitis, chest x-ray is negative CBC with a WBC of 15.6 and a left shift. CMP with glucose of 469, anion gap is normal, CO2 is normal, creatinine 3.2 with BUN of 49. 2 L of IV fluids were ordered currently infusing. Given 10 units of regular insulin. Spoke with Dr. Vivar, he stated this patient needs to be transferred to [place] due to acute renal failure Spoke with Dr. Vaz who accepted patient at [facility] [address] Fishman awaiting bed at [place] (STACIE CHEUNG PANTRY GOODS WORKER) Course & Med Decision Making Hyperglycemia- awaiting for bed at [facility]- See Notes Stacie Cheung. Prior shift change. Pt. request meds for sleep..." I needs some Fucking sleep.. " Ativan 2 mg ordered. Still awaiting bed at [facility] at 2300 hrs. - Accepted by Dr. Boland at [facility] Impression: 1. Hyperglycemia - DM 481- now 150's 2. Dementia 3. Pneumonia 4. Acute on Chronic Renal Failure Bun 49/3.[address] Cortes at shift change. (NIRALI GARCIA MD) Course & Med Decision Making Assumed care of patient after comprehensive signout from overnight physician AM 03/17/2020 I reviewed entirety of ER chart and personally repeated aspects of history and physical exam. Patient initially extremely somnolent from recently administered doxepin medication Later in shift, patient became more vocal and delirious. Patient tried to get up out of bed numerous times and agitated Patient verbally redirectable. She later reported chest pain and given this and ongoing dry nonproductive cough, chest x-ray and EKG performed with chest x-ray concerning for potential pneumonia. I'm concerned about aspiration given patient presentation and ongoing coughing and concern at times tolerating her own secretions, IV Unasyn started Given concern of patient's delirious state, the 5 mg IV Haldol administered with significant improvement in patient's mentation. Repeat dose later in the shift of additional 5 mg IV Haldol given with further improvement ////////////////// I assumed care of patient on 03/18/2021. No acute overnight events. Still pending possible transfer to [facility] for admission I reviewed entirety of ER case. Patient's mentation improved since Versed administration. Continuing to treat for aspiration pneumonia. Patient had elevated troponin that trended down I consulted cardiology attending and reviewed nonconcerning EKGs in conjunction with elevated troponin, no immediate indication for cath or transfer to cath capable facility As such I contacted hospitalist [facility] and reviewed presenting illness, interventions so far and need for hospitalization which I feel is safe here at [facility]. Dr. Vivar ultimately excepted patient under his care (BRYAN CORTES DO) Donion Disclaimer Dragon Disclaimer This electronic medical record was generated, in whole or in part, using a voice recognition dictation system. (STACIE CHEUNG PANTRY GOODS WORKER) Departure Departure: Impression: Primary Impression: Altered mental status Additional Impressions: Hyperglycemia ARF (acute renal failure) Aspiration pneumonia Disposition: ADMITTED INPATIENT Admitting Physician: Wilian Vivar (BRYAN CORTES DO) Condition: STABLE Referrals: KACIE ASCENCIO MD (PCP) Dragon Disclaimer This chart was dictated in whole or in part using Voice Recognition software in a busy, high-work load, and often noisy Emergency Department environment. It may contain unintended and wholly unrecognized errors or omissions. (NIRALI GARCIA MD) Problem Qualifiers Primary Impression: Altered mental status Altered mental status type: unspecified Qualified Codes: R41.82 - Altered mental status, unspecified Additional Impressions: ARF (acute renal failure) Acute renal failure type: unspecified Qualified Codes: N17.9 - Acute kidney failure, unspecified STACIE CHEUNG APRN Mar 16, 2021 18:37 NIRALI GARCIA MD Mar 16, 2021 22:30 BRYAN CORTES DO Mar 17, 2021 13:53
[2021-03-16 18:48] LABS: BILIRUBIN,URINE NEG (NEG); CLARITY,URINE CLEAR; COLOR,URINE YELLOW; GLUCOSE,URINE 500 mg/dL (NEG); NITRITE,URINE NEG (NEG); RBC,URINE OCC /HPF (0-2)
[2021-03-16 18:49] LABS: BACTERIA,URINE FEW /HPF (0-FEW); SQUAMOUS EPITHELIAL CELL,UR MOD /LPF
[2021-03-16] MEDS ORDERED: INSULIN REGULAR 100 UNIT/ML 3ML VIAL. IV ONE (19:00)
[2021-03-16] MEDS ORDERED: DEXTROSE 50% 25 GM / 50ML DISP.SYRIN. IV PRN (19:30)
[2021-03-16] MEDS ORDERED: IV NORMAL SALINE 50ML 50 ML ONE (20:11)
[2021-03-16] MEDS ORDERED: cefTRIAXone SODIUM 1 GM VIAL ONE (20:12)
--- NOTE | 2021-03-16 20:17 | RAD ---
Exam: CT of abdomen and pelvis without contrast INDICATION: Acute renal failure TECHNIQUE: Sequential axial images through the abdomen and pelvis obtained without IV contrast. Sagit ruth ann and coronal reformatted images were reconstructed from the axial data and reviewed. Exposure: One or more of the following in the visualized dose reduction techniques were utilized for this examination: 1. Automated exposure control 2. Adjustment of the MA and/or KV according to patient size 3. Use of iterative of reconstructive technique Comparisons: None FINDINGS: Heart size is normal. No pericardial effusion. Patchy consolidative changes noted at the left lower l obe. No pleural effusion. Evaluation of solid organs limited secondary to noncontrast technique. Liver, spleen, pancreas, gallbladder and adrenals are unremarkable. No perinephric inflammation or hydronephrosis. No renal or ureteral calculi are identified. Bladder is partially distended and not well evaluated. Uterus is nonenlarged. No abnormal adnexal mas s. Diverticulosis the sigmoid colon without evidence of acute diverticulitis. Appendix is nonidentified. No free intra-abdominal air or fluid. No obstruction. Abdominal aorta has normal course and caliber. No enlarged intra-abdominal lymph nodes are identified. No suspicious osseous lesions or acute fractures. IMPRESSION: 1. Consolidative changes noted at the left lower lobe favored to be infectious or inflammatory in et iology. 2. No acute process identified within the abdomen or pelvis. Electronically signed by: Marina Corado MD (03/16/2021 8:14 PM) [facility]
[2021-03-16 20:51] LABS: % BANDS 7 % (0-9); % LYMPHS 9 % (24-48); % METAS 1 % (0-0); % MONOS 7 % (0-10); % SEGS 76 % (35-66)
[2021-03-16 20:52] LABS: PLT ESTIMATE ADEQUATE (ADEQUATE)
[2021-03-16] MEDS: INSULIN GLARGINE SYRINGE. SQ SCH (21:23)
[2021-03-16] MEDS ORDERED: AZITHROMYCIN 250 MG TABLET. PO ONE (23:00)
[2021-03-16] MEDS ORDERED: ALBUTEROL SULFATE 8GM INHALER. INH ONE (23:00)
[2021-03-16] MEDS ORDERED: IV RINGERS SOLUTION,LACTATED 1,000 ML IV ONE (23:15)
[2021-03-16 23:42] LABS: INFLUENZA A PATIENT NEGATIVE (NEGATIVE); INFLUENZA B PATIENT NEGATIVE (NEGATIVE)
[2021-03-16] MEDS ORDERED: DOXEPIN HCL 10 MG CAPSULE PO SCH (23:45)
[2021-03-17] MEDS ORDERED: IV RINGERS SOLUTION,LACTATED 1,000 ML IV SCH (05:45)
[2021-03-17 08:32] LABS: BASO # 0.1 x10^3/uL (0.0-0.2); BASO % 1 % (0-3); EOS # 0.3 x10^3/uL (0.0-0.7); EOS % 2 % (0-3); HEMATOCRIT 33.9 % (36.0-47.0); LYMPH # 1.4 x10^3/uL (1.0-4.8); LYMPH % 11 % (24-48); MEAN CORPUSCULAR HEMOGLOBIN 31 pg (25-35); MEAN CORPUSCULAR HGB CONC 33 g/dL (31-37); MEAN CORPUSCULAR VOLUME 96 fL (79-100); MONO % 8 % (0-9); NEUT # 10.2 x10^3uL (1.8-7.7); NEUT % 79 % (31-73); PLATELET COUNT 206 x10^3/uL (140-400); RED BLOOD COUNT 3.55 x10^6/uL (3.50-5.40); RED CELL DISTRIBUTION WIDTH 13.7 % (11.5-14.5)
[2021-03-17 08:47] LABS: CALCIUM 8.3 mg/dL (8.5-10.1); CREATININE 1.9 mg/dL (0.6-1.0); GFR 26.9; POTASSIUM 3.1 mmol/L (3.5-5.1)
[2021-03-17] MEDS: INSULIN LISPRO 300 UNITS/3 ML VIAL. SQ SCH ×2 (12:37→17:00)
[2021-03-17] MEDS ORDERED: POTASSIUM CL 40MEQ IN 0.9%NACL 1,000 ML IV ONE (14:00)
[2021-03-17] MEDS ORDERED: HALOPERIDOL LACT 5 MG/ML VIAL. IM ONE (14:00)
--- NOTE | 2021-03-17 14:32 | RAD ---
EXAMINATION: Chest radiograph. VIEWS: Single AP view of the chest COMPARISON: 03/16/2021 INDICATION:60 years, Female, cough. FINDINGS: Stable cardiomediastinal silhouette. Increased patchy confluent left perihilar and basilar opacities with new subtle opacities in the right perihilar and basilar areas. No pleural effusion or pneumothor ax. No acute osseous process. IMPRESSION: 1. Worsening patchy bilateral mid and basilar opacities concerning for worsening pneumonia. Recommend follow-up to ensure resolution. 2. Redemonstrated prominence of the right anthony, may be from vascular engorgement, lymphadenopathy or mass. Recommend attention on follow-up. This can also be further evaluated with CT with IV contrast. Electronically signed by: Marcellus Tavares DO (03/17/2021 2:29 PM) [id number]
--- NOTE | 2021-03-17 15:31 | EKG ---
[address] [address] Test Date: 2021-03-17 Test Time: 13:47:31 Pat Name: MARCELO RUSH Department: Room: Gender: F Livestock Trucker: : 1960 Requested By: BRYAN CORTES Order Number: [id number] Reading MD: Yonatan Dsouza MD Measurements Intervals [place] Rate: 75 P: 8 NV: 154 QRS: 38 QRSD: 90 T: 27 QT: 364 QTc: 409 Interpretive Statements SINUS RHYTHM Electronically Signed On 04-03-2021 18:14:46 AMMONIA STILL OPERATOR by Yonatan Dsouza MD
[2021-03-17] MEDS: AMPICILLIN/SULBACTAM 3 GM in IV NORMAL SALINE 100ML 100 ML IV SCH (18:09)
[2021-03-17] MEDS ORDERED: MIDAZOLAM HCL PF 5 MG/5 ML VIAL. IV ONE ×2 (18:15→21:30)
[2021-03-17] MEDS ORDERED: DOXEPIN HCL 25 MG CAPSULE PO SCH (21:00)
[2021-03-17] MEDS: INSULIN GLARGINE SYRINGE. SQ SCH (21:13)
[2021-03-18] MEDS ORDERED: LABETALOL 20 MG/4 ML DISP.SYRIN. ONE (00:17)
[2021-03-18] MEDS ORDERED: LABETALOL 20 MG/4 ML DISP.SYRIN. IVP ONE ×3 (00:30→22:00)
[2021-03-18] MEDS ORDERED: ASPIRIN CHEWABLE 81 MG TABLET. PO ONE (05:15)
[2021-03-18] MEDS ORDERED: IV DEXTROSE 5% - 0.9 % NACL 1,000 ML IV ONE (05:15)
--- NOTE | 2021-03-18 05:49 | EKG ---
[address] [address] Test Date: 2021-03-18 Test Time: 01:26:37 Pat Name: MARCELO RUSH Department: Room: Gender: F Electronics Recycler: KAN : 1960 Requested By: JANA JEREZ Order Number: [id number] Reading MD: Garo Tay Measurements Intervals [place] Rate: 70 P: 39 CO: 172 QRS: 39 QRSD: 90 T: 47 QT: 434 QTc: 472 Interpretive Statements SINUS RHYTHM Electronically Signed On 03-25-2021 17:57:50 SOLAR ENERGY SYSTEM INSTALLER by Garo Tay
[2021-03-18] MEDS: AMPICILLIN/SULBACTAM 3 GM in IV NORMAL SALINE 100ML 100 ML IV SCH ×5 (06:14→23:33)
[2021-03-18 07:12] LABS: BASO # 0.1 x10^3/uL (0.0-0.2); BASO % 1 % (0-3); EOS # 0.4 x10^3/uL (0.0-0.7); EOS % 3 % (0-3); HEMATOCRIT 33.9 % (36.0-47.0); LYMPH # 1.3 x10^3/uL (1.0-4.8); LYMPH % 11 % (24-48); MEAN CORPUSCULAR HEMOGLOBIN 31 pg (25-35); MEAN CORPUSCULAR HGB CONC 32 g/dL (31-37); MEAN CORPUSCULAR VOLUME 96 fL (79-100); MONO # 1.3 x10^3/uL (0.0-1.1); MONO % 11 % (0-9); NEUT # 8.8 x10^3uL (1.8-7.7); NEUT % 75 % (31-73); PLATELET COUNT 208 x10^3/uL (140-400); RED BLOOD COUNT 3.54 x10^6/uL (3.50-5.40); RED CELL DISTRIBUTION WIDTH 14.4 % (11.5-14.5); WHITE BLOOD COUNT 11.8 x10^3/uL (4.0-11.0)
[2021-03-18 07:19] LABS: CALCIUM 8.4 mg/dL (8.5-10.1); CREATININE 1.2 mg/dL (0.6-1.0); GFR 45.7; POTASSIUM 3.7 mmol/L (3.5-5.1)
[2021-03-18 08:47] LABS: % ATYL 5 % (0-0); % BANDS 5 % (0-9); % EOS 3 % (0-5); % LYMPHS 15 % (24-48); % MONOS 6 % (0-10); % SEGS 66 % (35-66); PLT ESTIMATE ADEQUATE (ADEQUATE)
[2021-03-18] MEDS ORDERED: ACETAMINOPHEN 325 MG TABLET PO PRN (09:15)
[2021-03-18] MEDS ORDERED: NITROGLYCERIN SUBLINGUAL 0.4 MG BOTTLE OF 25. SL PRN (09:15)
[2021-03-18] MEDS: INSULIN LISPRO 300 UNITS/3 ML VIAL. SQ SCH ×3 (09:54→17:23)
--- NOTE | 2021-03-18 10:30 | RAD ---
AP portable chest radiograph 03/18/2021 Clinical History: Pneumonia. An AP erect portable digital radiograph of the chest was obtained. Comparison study is dated 03/17/2021. The cardiac silhouette is mildly enlarged. The thoracic aorta is tortuous. Bilateral perihilar infilt rates are seen which have not significantly changed. No pneumothorax or pleural effusion is noted. Th e osseous structures are unchanged. Impression: Bilateral perihilar infiltrates, unchanged. Electronically signed by: Beny Mattson MD (03/18/2021 10:27 AM) [id number]
[2021-03-18] MEDS ORDERED: MIDAZOLAM HCL PF 5 MG/5 ML VIAL. IV ONE ×3 (11:30→22:15)
--- NOTE | 2021-03-18 12:08 | HP ---
DATE OF SERVICE: 03/18/2021 ADMIT DATE: 03/18/2021 ATTENDING PHYSICIAN: Dr. Vivar. CHIEF COMPLAINT: Obtundation and shortness of breath. HISTORY OF PRESENT ILLNESS: The patient is a 60-year-old female with multiple medical issues. She has been in the Emergency Department for the last 2 days. She was in the process of being evaluated for hyperglycemia, aspiration pneumonia, altered mentation and generalized not feeling well. She was very agitated requiring sedation. She had elevation of cardiac enzymes without any EKG changes. We still were in the process of trying to get her to the [facility] ICU; however, no beds were available. Early this morning, Dr. Gilman called me and stated that they have gotten her stabilized, sugars are better. She has gotten several doses of intravenous antibiotic. They wanted her admitted to our ICU. I told him I would be happy to admit her if a bed opens up. I actually went down and saw her in the ED. She was agitated, confused, thrashing about. I could not get much history from her. No family is available. PAST MEDICAL HISTORY: Significant for hyperglycemia, substance abuse, noncompliance of meds and essential hypertension. ALLERGIES: She has no recorded drug allergies. CURRENT REGIMEN: Unclear and unknown. No family is available. I do not think she has been taking her meds. SOCIAL HISTORY: Smoking history as noted. Drug use, otherwise expected in the past. We could not confirm this. FAMILY HISTORY: Unobtainable. REVIEW OF SYSTEMS: Unobtainable. PHYSICAL EXAMINATION: GENERAL: When I saw her, this is a 60-year-old female who is thrashing about and unable to lay still. She states that "I am dying." VITAL SIGNS: Actually stable with a blood pressure 149/50. Her pulse is 73 and regular. She was afebrile, oxygen saturation 95% on 2 liters by nasal cannula. HEENT: Head is without trauma. Pupils are reactive. Sclerae nonicteric. Septum xanthelasma noted on exam. Oropharynx clear. NECK: No stridor. LUNGS: Shallow respirations, coarse rhonchi bilaterally. CARDIOVASCULAR: Showed regular heart tones. No gallop. ABDOMEN: Soft. No guarding. EXTREMITIES: Without edema. NEUROLOGIC: Very confused and agitated, thrashing about. She is nonambulatory. Capone catheter is in place. SKIN: Otherwise, warm and dry. PERTINENT LABORATORY STUDIES: Admission hemoglobin was 12.3 grams. With hydration, it came down to 11.0 g/dL. White count 11,800. Nonfasting blood sugars have been elevated on admission, it was down to 209 mg/dL this morning. Urinalysis showed some protein and sugars. Toxicology screen positive for cannabinoids. Serology negative for influenza A, B and coronavirus by PCR. Chest x-ray was more telltale. She had bilateral perihilar infiltrates consistent with probable aspiration pneumonia. The obligatory CT of the head showed no acute strokes or bleeds. ASSESSMENT: 1. A 60-year-old female with obtundation due to probable drug use. 2. Bilateral hilar pneumonia. 3. Incidental finding of elevated troponins due to stress demand ischemia. 4. Chronic obstructive pulmonary disease. 5. Hypertension. 6. Altered mentation. 7. Noncompliance of meds. 8. History of diabetes and hypertension. PLAN: 1. Admit to our ICU. 2. Continue IV antibiotics as ordered. 3. Glucose control. 4. Formal Cardiology consultation has already been entertained through the ED. KRISTINA DR: AMADO/tiffanie TID: [id number]
[2021-03-18] MEDS ORDERED: HALOPERIDOL LACT 5 MG/ML VIAL. IVP ONE (12:15)
--- NOTE | 2021-03-18 14:05 | EKG ---
[address] [address] Test Date: 2021-03-18 Test Time: 11:54:06 Pat Name: MARCELO RUSH Department: Room: ED [place] [id number] Gender: F Document Photographer: CHIQUI : 1960 Requested By: BRYAN CORTES Order Number: [id number] Reading MD: Garo Tay Measurements Intervals [place] Rate: 70 P: 0 ND: 158 QRS: 38 QRSD: 92 T: 51 QT: 424 QTc: 461 Interpretive Statements SINUS RHYTHM Electronically Signed On 03-25-2021 17:53:07 ADMINISTRATIVE SERVICES OFFICER by Garo Tay
[2021-03-18] MEDS: MORPHINE SULFATE 4 MG/ML DISP.SYRIN. IV PRN ×3 (14:41→21:04)
[2021-03-18] MEDS: IV RINGERS SOLUTION,LACTATED 1,000 ML IV SCH (19:11)
[2021-03-18] MEDS ORDERED: MIDAZOLAM HCL PF 5 MG/5 ML VIAL. ONE (20:57)
[2021-03-18] MEDS: INSULIN GLARGINE SYRINGE. SQ SCH (21:05)
[2021-03-19] VITALS (19 sets, daily range): BP systolic 128–190; BP diastolic 54–94
[2021-03-19] MEDS ORDERED: MIDAZOLAM HCL PF 2 MG/2 ML VIAL. IVP PRN (02:15)
[2021-03-19] MEDS ORDERED: LURA40TA PO (02:24)
[2021-03-19] MEDS ORDERED: PANT20TA4 PO (02:24)
[2021-03-19] MEDS ORDERED: METF-658 PO (02:24)
[2021-03-19] MEDS ORDERED: BUSP10TA PO (02:24)
[2021-03-19] MEDS ORDERED: ESCI20TA8 PO (02:24)
[2021-03-19] MEDS ORDERED: QUIN5TAB13 PO (02:24)
[2021-03-19] MEDS ORDERED: LEVO75TA5 PO (02:24)
[2021-03-19] MEDS ORDERED: TRAZ-120 PO (02:24)
[2021-03-19] MEDS ORDERED: LITH300C PO (02:24)
[2021-03-19] MEDS: IV RINGERS SOLUTION,LACTATED 1,000 ML IV SCH (03:30)
[2021-03-19] MEDS: MORPHINE SULFATE 4 MG/ML DISP.SYRIN. IV PRN ×2 (03:30→19:40)
[2021-03-19] MEDS: LABETALOL 20 MG/4 ML DISP.SYRIN. IVP PRN ×2 (03:31→15:24)
[2021-03-19] MEDS: HALOPERIDOL LACT 5 MG/ML VIAL. IVP PRN ×2 (06:14→14:34)
[2021-03-19] MEDS: guaiFENesin DM 200MG/20MG 10 ML SYRUP PO PRN (06:14)
[2021-03-19] MEDS: AMPICILLIN/SULBACTAM 3 GM in IV NORMAL SALINE 100ML 100 ML IV SCH ×3 (06:15→20:05)
[2021-03-19 08:29] LABS: BASO % 0 % (0-3); EOS # 0.4 x10^3/uL (0.0-0.7); EOS % 3 % (0-3); HEMATOCRIT 33.3 % (36.0-47.0); HEMOGLOBIN 10.9 g/dL (12.0-15.5); LYMPH # 1.6 x10^3/uL (1.0-4.8); LYMPH % 13 % (24-48); MEAN CORPUSCULAR HEMOGLOBIN 31 pg (25-35); MEAN CORPUSCULAR HGB CONC 33 g/dL (31-37); MEAN CORPUSCULAR VOLUME 96 fL (79-100); MONO # 1.1 x10^3/uL (0.0-1.1); MONO % 9 % (0-9); NEUT # 8.9 x10^3uL (1.8-7.7); NEUT % 74 % (31-73); PLATELET COUNT 202 x10^3/uL (140-400); RED BLOOD COUNT 3.48 x10^6/uL (3.50-5.40); RED CELL DISTRIBUTION WIDTH 14.6 % (11.5-14.5)
--- NOTE | 2021-03-19 08:34 | PDOC2 ---
CONSULT DOS: DATE: 03/19/21 TIME: 08:34 Reason for Consult: Elevated troponin level Referring Physician: Dr. Vivar Chief Complaint Mental status changes Source: Chart review, Patient Problem List Problems Medical Problems: (1) Altered mental status Status: Acute (2) ARF (acute renal failure) Status: Acute (3) Aspiration pneumonia Status: Acute (4) Hyperglycemia Status: Acute History of Present Illness 60-year-old female with history of diabetes mellitus type 2 presented with mental status changes and obtundation and was found to be hypoglycemic. She apparently has been noncompliant with her medications. She denied any chest pain, orthopnea/PND, palpitations or syncope. Her troponin level was slightly elevated prompting cardiology consultation. Past Medical History Hypertension Diabetes mellitus type 2 Bipolar disorder Family History Hypertension Social History Patient denied any smoking or drug abuse but admitted to occasional alcohol intake Current Medications Current Medications Sodium Chloride 1,000 ml @ 1,000 mls/hr 1X ONCE IV Last administered on 03/16/21at 16:45; Start 03/16/21 at 16:45; Stop 03/16/21 at 17:44; Status DC Sodium Chloride 1,000 ml @ 1,000 mls/hr 1X ONCE IV Last administered on 03/16/21at 20:20; Start 03/16/21 at 16:45; Stop 03/16/21 at 17:44; Status DC Insulin Human Regular (HumuLIN R VIAL) 10 unit 1X ONCE IV Last administered on 03/16/21at 20:21; Start 03/16/21 at 19:00; Stop 03/16/21 at 19:09; Status DC Sodium Chloride 1,000 ml @ 1,000 mls/hr 1X ONCE IV Last administered on 03/16/21at 22:33; Start 03/16/21 at 19:15; Stop 03/16/21 at 20:14; Status DC Ceftriaxone Sodium 1 gm/ Sodium Chloride 50 ml @ 100 mls/hr 1X ONCE IV Last administered on 03/16/21at 20:35; Start 03/16/21 at 19:30; Stop 03/16/21 at 19:59; Status DC Insulin Glargine (Lantus Syringe) 10 unit QHS SQ Last administered on 03/18/21at 21:05; Start 03/16/21 at 21:00 Sodium Chloride 1,000 ml @ 0 mls/hr 1X ONCE IV ; Start 03/16/21 at 19:30; Stop 03/16/21 at 19:31; Status DC Insulin Human Lispro (HumaLOG) 0-9 UNITS TIDWMEALS SQ Last administered on 03/18/21at 17:23; Start 03/17/21 at 08:00 Dextrose (Dextrose 50%-Water Syringe) 12.5 gm PRN Q15MIN PRN IV SEE COMMENTS; Start 03/16/21 at 19:30 Sodium Chloride 50 ml @ As Directed STK-MED ONCE .ROUTE ; Start 03/16/21 at 20:11; Stop 03/16/21 at 20:12; Status DC Ceftriaxone Sodium (Rocephin) 1 gm STK-MED ONCE .ROUTE ; Start 03/16/21 at 20:12; Stop 03/16/21 at 20:12; Status DC Azithromycin (Zithromax) 500 mg 1X ONCE PO Last administered on 03/16/21at 23:19; Start 03/16/21 at 23:00; Stop 03/16/21 at 23:14; Status DC Albuterol Sulfate (Ventolin Hfa Inhaler) 2 puff 1X ONCE INH ; Start 03/16/21 at 23:00; Stop 03/16/21 at 23:14; Status DC Lorazepam (Ativan Inj) 2 mg 1X ONCE IVP Last administered on 03/16/21at 23:19; Start 03/16/21 at 23:15; Stop 03/16/21 at 23:16; Status DC Lactated Ringer's 1,000 ml @ 160 mls/hr 1X ONCE IV Last administered on 03/17/21at 00:34; Start 03/16/21 at 23:15; Stop 03/17/21 at 05:29; Status DC Doxepin HCl (SINEquan) 50 mg QHS PO Last administered on 03/17/21at 00:26; Start 03/16/21 at 23:45; Stop 03/17/21 at 16:47; Status DC Lactated Ringer's 1,000 ml @ 100 mls/hr Q10H IV Last administered on 03/17/21at 07:01; Start 03/17/21 at 05:45; Stop 03/17/21 at 15:44; Status DC Haloperidol Lactate (Haldol) 5 mg 1X ONCE IM Last administered on 03/17/21at 14:18; Start 03/17/21 at 14:00; Stop 03/17/21 at 14:02; Status DC Potassium Chloride/Sodium Chloride 1,000 ml @ 125 mls/hr 1X ONCE IV Last administered on 03/17/21at 15:26; Start 03/17/21 at 14:00; Stop 03/17/21 at 21:59; Status DC Ampicillin Sodium/ Sulbactam Sodium 3 gm/Sodium Chloride 100 ml @ 200 mls/hr Q6HRS IV Last administered on 03/19/21at 06:15; Start 03/17/21 at 18:00 Doxepin HCl (SINEquan) 25 mg QHS PO ; Start 03/17/21 at 21:00; Stop 03/17/21 at 18:53; Status DC Midazolam HCl (Versed) 5 mg 1X ONCE IV Last administered on 03/17/21at 19:05; Start 03/17/21 at 18:15; Stop 03/17/21 at 18:19; Status DC Midazolam HCl (Versed) 5 mg 1X ONCE IV Last administered on 03/17/21at 21:42; Start 03/17/21 at 21:30; Stop 03/17/21 at 21:35; Status DC Labetalol HCl (Normodyne) 20 mg 1X ONCE IVP Last administered on 03/18/21at 00:30; Start 03/18/21 at 00:30; Stop 03/18/21 at 00:31; Status DC Labetalol HCl (Normodyne) 20 mg STK-MED ONCE .ROUTE ; Start 03/18/21 at 00:17; Stop 03/18/21 at 00:17; Status DC Labetalol HCl (Normodyne) 20 mg 1X ONCE IVP Last administered on 03/18/21at 06:24; Start 03/18/21 at 05:15; Stop 03/18/21 at 05:16; Status DC Dextrose/Sodium Chloride 1,000 ml @ 100 mls/hr 1X ONCE IV Last administered on 03/18/21at 06:23; Start 03/18/21 at 05:15; Stop 03/18/21 at 15:14; Status DC Aspirin (Aspirin Chewable) 324 mg 1X ONCE PO Last administered on 03/18/21at 06:24; Start 03/18/21 at 05:15; Stop 03/18/21 at 05:16; Status DC Acetaminophen (Tylenol) 650 mg PRN Q4HRS PRN PO FEVER > 100.3'F; Start 03/18/21 at 09:15; Stop 03/19/21 at 09:14 Nitroglycerin (Nitrostat) 0.4 mg PRN Q5MIN PRN SL CHEST PAIN; Start 03/18/21 at 09:15; Stop 03/19/21 at 09:14 Midazolam HCl (Versed) 5 mg 1X ONCE IV Last administered on 03/18/21at 11:36; Start 03/18/21 at 11:30; Stop 03/18/21 at 11:31; Status DC Haloperidol Lactate (Haldol) 5 mg 1X ONCE IVP Last administered on 03/18/21at 13:02; Start 03/18/21 at 12:15; Stop 03/18/21 at 12:16; Status DC Morphine Sulfate (Morphine 4mg Syringe) 4 mg PRN Q2HR PRN IV PAIN Last administered on 03/18/21at 21:04; Start 03/18/21 at 14:45; Stop 03/19/21 at 02:16; Status DC Lactated Ringer's 1,000 ml @ 125 mls/hr Q8H IV Last administered on 03/19/21at 03:30; Start 03/18/21 at 19:15 Midazolam HCl (Versed) 5 mg 1X ONCE IV Last administered on 03/18/21at 23:36; Start 03/18/21 at 21:00; Stop 03/18/21 at 21:02; Status DC Midazolam HCl (Versed) 5 mg STK-MED ONCE .ROUTE ; Start 03/18/21 at 20:57; Stop 03/18/21 at 20:57; Status DC Labetalol HCl (Normodyne) 20 mg 1X ONCE IVP Last administered on 03/18/21at 23:37; Start 03/18/21 at 22:00; Stop 03/18/21 at 22:01; Status DC Midazolam HCl (Versed) 5 mg 1X ONCE IV ; Start 03/18/21 at 22:15; Stop 03/18/21 at 22:16; Status DC Labetalol HCl (Normodyne) 20 mg PRN Q6HRS PRN IVP HYPERTENSION Last administered on 03/19/21at 03:31; Start 03/19/21 at 02:15 Morphine Sulfate (Morphine 4mg Syringe) 4 mg PRN Q2HR PRN IV PAIN Last administered on 03/19/21at 03:30; Start 03/19/21 at 02:15 Midazolam HCl (Versed) 2 mg PRN Q2HR PRN IVP AGITATION; Start 03/19/21 at 02:15; Stop 03/19/21 at 08:04; Status DC Haloperidol Lactate (Haldol) 5 mg PRN Q8HRS PRN IVP AGITATION Last administered on 03/19/21at 06:14; Start 03/19/21 at 02:15 Guaifenesin (Robitussin Dm) 10 ml PRN Q6HRS PRN PO COUGH 1st choice Last administered on 03/19/21at 06:14; Start 03/19/21 at 06:15 Benzonatate (Tessalon Perle) 100 mg PRN TID PRN PO COUGH 2ND CHOICE; Start 03/19/21 at 06:15 Midazolam HCl (Versed) 2 mg PRN Q2HR PRN IV AGITATION; Start 03/19/21 at 08:15 Lactobacillus Rhamnosus (Culturelle) 1 cap BID PO ; Start 03/19/21 at 21:00 Active Scripts Active Hydrocodone-Apap 5-325 (Hydrocodone Bit/Acetaminophen) 1 Each Tablet 1 Tab PO PRN Q6HRS PRN 3 Days [place] 5-325 Tablet (Hydrocodone Bit/Acetaminophen) 1 Each Tablet 1-2 Tab PO PRN Q6HRS PRN Reported Metformin Hcl Er (Metformin Hcl) 500 Mg Tab.er.24h 1 Tab PO BID Trazodone Hcl 50 Mg Tablet 1 Tab PO QHS Pantoprazole Sodium 20 Mg Tablet.dr 1 Tab PO DAILY Quinapril Hcl 5 Mg Tablet 1 Tab PO DAILY [place] Carbonate 300 Mg Capsule 1 Cap PO TID Buspirone Hcl 10 Mg Tablet 1 Tab PO BID Escitalopram Oxalate 20 Mg Tablet 1 Tab PO DAILY Levothyroxine Sodium 75 Mcg Tablet 1 Tab PO DAILY Latuda (Lurasidone Hcl) 40 Mg Tablet 1 Tab PO QHS Allergies: Coded Allergies: No Known Drug Allergies (Unverified , 12/30/20) PSYCHOLOGICAL ROS: YES: Behavioral Disorder Eyes: No: Loss of vision HEENT: No: Epistaxis Respiratory: No: Hemoptysis Cardiovascular: No: Chest Pain, Palpitations Gastrointestinal: No: Vomiting Genitourinary: No: [place] Neurological: No: Seizures Skin: No: Rash General: Alert, No acute distress HEENT: Atraumatic Lungs: Other (Scattered crepitations bilaterally) Heart: Regular rate Abdomen: Soft Extremities: No edema Psych/Mental Status: Mood NL VITALS Vital Signs Date Time Temp Pulse Resp B/P (MAP) Pulse Ox O2 Delivery O2 Flow Rate FiO2 03/19/21 06:12 64 6 141/54 (83) 95 Simple Mask 6.0 03/19/21 05:23 98.5 Labs Laboratory Tests Test 03/17/21 14:02 03/17/21 17:57 03/17/21 21:09 03/18/21 00:35 Glucose (Fingerstick) 145 mg/dL (70-99) 145 mg/dL (70-99) 203 mg/dL (70-99) Troponin I High Sensitivity 163 ng/L (4-50) Test 03/18/21 06:40 03/18/21 08:26 03/18/21 12:27 03/18/21 17:15 White Blood Count 11.8 x10^3/uL (4.0-11.0) Red Blood Count 3.54 x10^6/uL (3.50-5.40) Hemoglobin 11.0 g/dL (12.0-15.5) Hematocrit 33.9 % (36.0-47.0) Mean Corpuscular Volume 96 fL (79-100) Mean Corpuscular Hemoglobin 31 pg (25-35) Mean Corpuscular Hemoglobin Concent 32 g/dL (31-37) Red Cell Distribution Width 14.4 % (11.5-14.5) Platelet Count 208 x10^3/uL (140-400) Neutrophils (%) (Auto) 75 % (31-73) Lymphocytes (%) (Auto) 11 % (24-48) Monocytes (%) (Auto) 11 % (0-9) Eosinophils (%) (Auto) 3 % (0-3) Basophils (%) (Auto) 1 % (0-3) Neutrophils # (Auto) 8.8 x10^3uL (1.8-7.7) Lymphocytes # (Auto) 1.3 x10^3/uL (1.0-4.8) Monocytes # (Auto) 1.3 x10^3/uL (0.0-1.1) Eosinophils # (Auto) 0.4 x10^3/uL (0.0-0.7) Basophils # (Auto) 0.1 x10^3/uL (0.0-0.2) Segmented Neutrophils % 66 % (35-66) Band Neutrophils % 5 % (0-9) Lymphocytes % 15 % (24-48) Atypical Lymphocytes % (Manual) 5 % (0-0) Monocytes % 6 % (0-10) Eosinophils % 3 % (0-5) Platelet Estimate Adequate (ADEQUATE) Sodium Level 144 mmol/L (136-145) Potassium Level 3.7 mmol/L (3.5-5.1) Chloride Level 112 mmol/L (98-107) Carbon Dioxide Level 19 mmol/L (21-32) Anion Gap 13 (6-14) Blood Urea Nitrogen 29 mg/dL (7-20) Creatinine 1.2 mg/dL (0.6-1.0) Estimated GFR (Cockcroft-Gault) 45.7 Glucose Level 209 mg/dL (70-99) Calcium Level 8.4 mg/dL (8.5-10.1) Troponin I High Sensitivity 140 ng/L (4-50) Glucose (Fingerstick) 246 mg/dL (70-99) 240 mg/dL (70-99) 261 mg/dL (70-99) Assessment/Plan 1. Slight troponin elevation, most probably demand ischemia. Patient is currently chest pain-free. EKG without acute changes. 2D echo in 2018 showed LVEF 60 to 65% with mild aortic stenosis. Repeat 2D echo and ischemic evaluation could be considered as an outpatient. 2. Bilateral hilar pneumonia: Continue antibiotics per IM 3. COPD: Clinically stable 4. Diabetes mellitus type 2 presenting with hyperglycemia. Continue treatment per IM. 5. Hypertension: Controlled 6. Hypokalemia: Replace orally 7. Mental status changes, most probably metabolic encephalopathy, improved since admission Thank you for your consultation ANGELINA CRUZ MD Mar 19, 2021 08:34
[2021-03-19 08:37] LABS: CALCIUM 8.4 mg/dL (8.5-10.1); GFR 56.4; POTASSIUM 3.1 mmol/L (3.5-5.1)
[2021-03-19] MEDS: MIDAZOLAM HCL PF 5 MG/5 ML VIAL. IV PRN ×2 (10:03→12:12)
[2021-03-19] MEDS: INSULIN LISPRO 300 UNITS/3 ML VIAL. SQ SCH ×3 (10:12→17:16)
[2021-03-19] MEDS: NICOTINE 21MG PATCH. TD SCH (10:19)
--- NOTE | 2021-03-19 10:19 | PN ---
DATE: 03/19/2021 ATTENDING PHYSICIAN: Dr. Vivar. SUBJECTIVE: Very agitated, trying to climb out of bed. She is more awake. Unfortunately, she is ill and has very little coping mechanism. The deal with being uncomfortable. She insists on going home without any insight as to what is going to happen. She came to the ED. The family is unable to care for her given her degree of illness. She still has bilateral pneumonia. We are treating her. Followup x-ray has been ordered. OBJECTIVE FINDINGS: VITAL SIGNS: Blood pressure this morning is 128/60, pulse is 80 and regular. She is afebrile. Oxygen saturation 95% on 3 liters. HEENT: Head is without trauma. Pupils are reactive. Sclerae nonicteric. Oropharynx is clear. NECK: Supple, no bruits identified. LUNGS: Shallow respirations bilaterally. CARDIOVASCULAR: Showed distant heart tones. No gallops. ABDOMEN: Soft. EXTREMITIES: Without edema. NEUROLOGIC FINDINGS: Confused and agitated. PERTINENT LABORATORY STUDIES: This morning, her hemoglobin is 10.9 g/dL with a white count of 12,000. Electrolytes showed a sodium 142, potassium 3.1 mEq. Nonfasting blood sugar 243. Followup x-ray is pending. ASSESSMENT: A 60-year-old female with, 1. Bilateral pneumonia. 2. Obtundation due to drug use. 3. Noncompliance of meds. 4. Hyperglycemia due to noncompliance. 5. Chronic obstructive pulmonary disease. 6. Altered mentation, still confused. 7. History of diabetes and hypertension. PLAN: 1. We will discontinue the IV fluids. She is starting to get bloated. 2. Follow up chest x-ray. 3. Continue antibiotics. 4. Prognosis is quite guarded given her degree of difficulty to manage. EUGENIO DINH: Mabel TID: [id number]
[2021-03-19] MEDS: MIDAZOLAM HCL PF 2 MG/2 ML VIAL. IV PRN ×2 (14:38→17:11)
[2021-03-19] MEDS ORDERED: POTASSIUM CHLORIDE 20 MEQ TABLET.ER. PO ONE (15:15)
[2021-03-19] MEDS: POTASSIUM CHLORIDE 20MEQ 100 ML IV SCH ×2 (15:21→20:00)
--- NOTE | 2021-03-19 16:50 | RAD ---
AP portable chest radiograph 03/19/2021 Clinical History: Cough and shortness of breath. An AP erect portable digital radiograph of the chest was obtained. Comparison study is dated 03/18/2021. The cardiac silhouette is mildly enlarged. The thoracic aorta is tortuous. Bilateral perihilar infilt rates are seen which have not significantly changed. No pneumothorax or pleural effusion is noted. Th e osseous structures are unchanged. Impression: Bilateral perihilar infiltrates, unchanged. Electronically signed by: Beny Mattson MD (03/19/2021 4:48 PM) [id number]
[2021-03-19] MEDS: INSULIN GLARGINE SYRINGE. SQ SCH (21:00)
[2021-03-20] VITALS (23 sets, daily range): BP systolic 143–201; BP diastolic 61–95
[2021-03-20] MEDS: AMPICILLIN/SULBACTAM 3 GM in IV NORMAL SALINE 100ML 100 ML IV SCH ×5 (01:07→23:24)
[2021-03-20] MEDS: LACTOBACILLUS RHAMNOSUS GG 1 CAPSULE. PO SCH ×3 (01:08→20:32)
[2021-03-20] MEDS: LABETALOL 20 MG/4 ML DISP.SYRIN. IVP PRN ×2 (05:07→22:06)
[2021-03-20] MEDS: MORPHINE SULFATE 4 MG/ML DISP.SYRIN. IV PRN ×3 (05:45→15:34)
[2021-03-20] MEDS: NICOTINE 21MG PATCH. TD SCH (08:00)
--- NOTE | 2021-03-20 08:06 | PDOC ---
CARDIO Progress Notes Date & Time Date of Service DATE: 03/20/21 TIME: 08:05 Time of Evaluation 08:05 Subjective Notes c/o cough. No CP, palpitations Vitals Vitals Vital Signs Date Time Temp Pulse Resp B/P (MAP) Pulse Ox O2 Delivery O2 Flow Rate FiO2 03/20/21 07:11 63 20 155/73 (100) 96 03/20/21 06:29 Nasal Cannula 3.0 03/20/21 06:11 98.4 Weight Weight [ ] Input and Output I.O. Intake and Output 03/20/21 07:00 Intake Total 2000 ml Output Total 2850 ml Balance -850 ml Intake Oral 2000 ml Output Urine Total 2850 ml # Bowel Movements 4 Laboratory Labs Laboratory Tests Test 03/18/21 08:26 03/18/21 12:27 03/18/21 17:15 03/19/21 08:15 Glucose (Fingerstick) 246 mg/dL (70-99) 240 mg/dL (70-99) 261 mg/dL (70-99) White Blood Count 12.0 x10^3/uL (4.0-11.0) Red Blood Count 3.48 x10^6/uL (3.50-5.40) Hemoglobin 10.9 g/dL (12.0-15.5) Hematocrit 33.3 % (36.0-47.0) Mean Corpuscular Volume 96 fL (79-100) Mean Corpuscular Hemoglobin 31 pg (25-35) Mean Corpuscular Hemoglobin Concent 33 g/dL (31-37) Red Cell Distribution Width 14.6 % (11.5-14.5) Platelet Count 202 x10^3/uL (140-400) Neutrophils (%) (Auto) 74 % (31-73) Lymphocytes (%) (Auto) 13 % (24-48) Monocytes (%) (Auto) 9 % (0-9) Eosinophils (%) (Auto) 3 % (0-3) Basophils (%) (Auto) 0 % (0-3) Neutrophils # (Auto) 8.9 x10^3uL (1.8-7.7) Lymphocytes # (Auto) 1.6 x10^3/uL (1.0-4.8) Monocytes # (Auto) 1.1 x10^3/uL (0.0-1.1) Eosinophils # (Auto) 0.4 x10^3/uL (0.0-0.7) Basophils # (Auto) 0.0 x10^3/uL (0.0-0.2) Sodium Level 142 mmol/L (136-145) Potassium Level 3.1 mmol/L (3.5-5.1) Chloride Level 109 mmol/L (98-107) Carbon Dioxide Level 21 mmol/L (21-32) Anion Gap 12 (6-14) Blood Urea Nitrogen 14 mg/dL (7-20) Creatinine 1.0 mg/dL (0.6-1.0) Estimated GFR (Cockcroft-Gault) 56.4 Glucose Level 243 mg/dL (70-99) Calcium Level 8.4 mg/dL (8.5-10.1) Test 03/19/21 11:51 03/19/21 17:15 03/19/21 21:24 03/20/21 07:18 Glucose (Fingerstick) 211 mg/dL (70-99) 160 mg/dL (70-99) 166 mg/dL (70-99) 198 mg/dL (70-99) Microbiology Micro Microbiology 03/16/21 Urine Culture - Final, Complete Physical Exams HEENT: Neck Supple W Full Motion Chest: Symmetric Lungs: Other (rhonchi) Heart: RRR Abdomen: Soft N/T Extremities: No Edema Neurology: alert, oriented, follow commands Assessment Assessment 1. Slight troponin elevation; high sensitivity trop peak 163. most probably type II, demand ischemia. CP free. EKG without acute changes. 2D echo in 2018 showed LVEF 60 to 65% with mild aortic stenosis. Repeat 2D echo and ischemic evaluation could be considered as an outpatient. 2. Bilateral hilar pneumonia: Continue antibiotics per IM 3. COPD: Clinically stable 4. Diabetes mellitus type 2 presenting with hyperglycemia. Continue treatment per IM. 5. Hypertension: uncontrolled. Will add lisinopril for BP control 6. Hypokalemia, hypomagnesemia; replace 7. Mental status changes, most probably metabolic encephalopathy, improved since admission 8. Noncompliance, substance abuse. UDS + marijuana. RUY BROOKS APRN Mar 20, 2021 08:06
[2021-03-20] MEDS: BENZONATATE 100 MG CAPSULE. PO PRN ×2 (08:07→20:32)
[2021-03-20] MEDS: INSULIN LISPRO 300 UNITS/3 ML VIAL. SQ SCH ×3 (08:58→18:38)
[2021-03-20 09:14] LABS: CREATININE 0.8 mg/dL (0.6-1.0); GFR 72.9; MAGNESIUM 1.2 mg/dL (1.8-2.4)
[2021-03-20 09:16] LABS: POTASSIUM 2.8 mmol/L (3.5-5.1)
[2021-03-20] MEDS ORDERED: MAGNESIUM SULFATE 1 GM in IV DEXTROSE 5% 100 ML IV ONE (10:15)
[2021-03-20] MEDS ORDERED: POTASSIUM CHLORIDE 20 MEQ TABLET.ER. PO ONE (10:15)
[2021-03-20] MEDS ORDERED: MAGNESIUM SULFATE 1GM 100 ML IV ONE (10:30)
--- NOTE | 2021-03-20 10:32 | PN ---
DATE: 03/20/2021 ATTENDING PHYSICIAN: Dr. Vivar. SUBJECTIVE: The patient is fairly alert. She is very remorseful this morning. We had a first time in 4 days a valid conversation. She tells me she is on disability. She is diabetic. She has bipolar disorder. She takes insulin and lithium. Unfortunately, she is not compliant with her meds. She sees Dr. Nishant Vega sporadically. She continues to smoke. She also uses marijuana on a regular basis. In addition, there is a history of recreational cocaine use. OBJECTIVE FINDINGS: VITAL SIGNS: Blood pressure this morning is 153/62 mmHg, pulse is 64 and regular, oxygen saturation 95% on 3 liters by nasal cannula and her temperature is 98.4 degrees Fahrenheit. HEENT: Head is without trauma. Pupils are reactive. Sclerae nonicteric. Oropharynx is clear. NECK: Supple. LUNGS: Coarse rhonchi bilaterally. CARDIOVASCULAR: Showed regular heart tones. No gallops. ABDOMEN: Soft. EXTREMITIES: Without edema. NEUROLOGIC: Focally intact. Speech is fluent. She was actually calm this morning and not agitated. IMAGING: Followup chest x-ray yesterday shows bilateral perihilar infiltrates, very slow progress, unchanged from previous x-ray. LABORATORY STUDIES: Her potassium is diminished, oral supplement as well as magnesium have been ordered. ASSESSMENT: 1. A 60-year-old female with bilateral pneumonia, improving on antibiotics. 2. Probable aspiration. 3. Bipolar disorder. 4. Noncompliance of meds. 5. Polysubstance abuse. 6. Chronic obstructive pulmonary disease. 7. Altered mentation, resolved. 8. Uncontrolled diabetes, improved. 9. Essential hypertension. 10. Asymptomatic hypokalemia. PLAN: 1. We will discontinue the IV fluids. 2. Oral potassium and intravenous magnesium replacement. 3. Serial chemistry. 4. Echocardiogram. 5. Glucose control. 6. Continue antibiotics. 7. Discontinue Capone catheter. 8. We will wean down supplemental oxygen. AMADO/HIRA DR: AMADO/tiffanie TID: [id number] CC: NISHANT VEGA MD
[2021-03-20] MEDS: MIDAZOLAM HCL PF 2 MG/2 ML VIAL. IV PRN ×2 (13:46→20:32)
[2021-03-20] MEDS ORDERED: LISINOPRIL 20 MG TABLET PO SCH (15:00)
[2021-03-20] MEDS: guaiFENesin DM 200MG/20MG 10 ML SYRUP PO PRN (20:32)
[2021-03-20] MEDS: POTASSIUM CHLORIDE 20 MEQ TABLET.ER. PO SCH (20:32)
[2021-03-20] MEDS: INSULIN GLARGINE SYRINGE. SQ SCH (20:33)
[2021-03-20] MEDS: HALOPERIDOL LACT 5 MG/ML VIAL. IVP PRN (22:05)
[2021-03-21] VITALS (19 sets, daily range): BP systolic 128–185; BP diastolic 61–89
[2021-03-21] MEDS: guaiFENesin DM 200MG/20MG 10 ML SYRUP PO PRN ×2 (03:14→08:29)
[2021-03-21] MEDS: MORPHINE SULFATE 4 MG/ML DISP.SYRIN. IV PRN ×2 (03:15→05:35)
[2021-03-21] MEDS: AMPICILLIN/SULBACTAM 3 GM in IV NORMAL SALINE 100ML 100 ML IV SCH ×3 (05:35→17:24)
[2021-03-21] MEDS: BENZONATATE 100 MG CAPSULE. PO PRN (05:35)
--- NOTE | 2021-03-21 08:22 | PDOC ---
CARDIO Progress Notes Date & Time Date of Service DATE: 03/21/21 TIME: 08:21 Time of Evaluation 08:21 Subjective Notes Feeling better, no SOA. Has cough Vitals Vitals Vital Signs Date Time Temp Pulse Resp B/P (MAP) Pulse Ox O2 Delivery O2 Flow Rate FiO2 03/21/21 07:05 56 15 173/72 (105) 94 Nasal Cannula 3.0 03/20/21 19:49 98.5 Weight Weight [ ] Input and Output I.O. Intake and Output 03/21/21 07:00 Intake Total 1210 ml Output Total 1500 ml Balance -290 ml Intake Oral 1010 ml IV Total 200 ml Output Urine Total 1500 ml # Voids 4 # Bowel Movements 1 Laboratory Labs Laboratory Tests Test 03/19/21 11:51 03/19/21 17:15 03/19/21 21:24 03/20/21 07:18 Glucose (Fingerstick) 211 mg/dL (70-99) 160 mg/dL (70-99) 166 mg/dL (70-99) 198 mg/dL (70-99) Test 03/20/21 08:50 03/20/21 11:52 03/20/21 16:54 03/20/21 19:54 Sodium Level 141 mmol/L (136-145) Potassium Level 2.8 mmol/L (3.5-5.1) Chloride Level 105 mmol/L (98-107) Carbon Dioxide Level 21 mmol/L (21-32) Anion Gap 15 (6-14) Blood Urea Nitrogen 10 mg/dL (7-20) Creatinine 0.8 mg/dL (0.6-1.0) Estimated GFR (Cockcroft-Gault) 72.9 Glucose Level 205 mg/dL (70-99) Calcium Level 8.0 mg/dL (8.5-10.1) Magnesium Level 1.2 mg/dL (1.8-2.4) Glucose (Fingerstick) 186 mg/dL (70-99) 180 mg/dL (70-99) 200 mg/dL (70-99) Test 03/21/21 07:56 Glucose (Fingerstick) 213 mg/dL (70-99) Microbiology Micro Microbiology 03/16/21 Urine Culture - Final, Complete Physical Exams HEENT: Neck Supple W Full Motion Chest: Symmetric Lungs: Clear to Auscultation Heart: RRR Abdomen: Soft N/T Extremities: No Edema Neurology: alert, oriented, follow commands Assessment Assessment 1. Slight troponin elevation; high sensitivity trop peak 163. most probably type II, demand ischemia. CP free. EKG without acute changes. 2D echo in 2018 showed LVEF 60 to 65% with mild aortic stenosis. Repeat 2D echo. Ischemic evaluation could be considered as an outpatient. 2. Bilateral hilar pneumonia: Continue antibiotics per IM 3. COPD: Clinically stable 4. Diabetes mellitus type 2 presenting with hyperglycemia. Continue treatment per IM. 5. Hypertension: uncontrolled. Will increase lisinopril for BP control 6. Hypokalemia, hypomagnesemia; replaced. recheck labs 7. Mental status changes, most probably metabolic encephalopathy, improved since admission 8. Noncompliance, substance abuse. UDS + marijuana. RUY BROOKS APRN Mar 21, 2021 08:22
[2021-03-21] MEDS: NICOTINE 21MG PATCH. TD SCH (08:29)
[2021-03-21] MEDS: POTASSIUM CHLORIDE 20 MEQ TABLET.ER. PO SCH ×2 (08:29→21:15)
[2021-03-21] MEDS: LACTOBACILLUS RHAMNOSUS GG 1 CAPSULE. PO SCH ×2 (08:29→21:15)
[2021-03-21] MEDS: LISINOPRIL 20 MG TABLET PO SCH (08:29)
[2021-03-21] MEDS: HALOPERIDOL LACT 5 MG/ML VIAL. IVP PRN ×2 (08:30→19:19)
[2021-03-21 09:12] LABS: CALCIUM 8.2 mg/dL (8.5-10.1); CREATININE 0.9 mg/dL (0.6-1.0); GFR 63.7; MAGNESIUM 1.7 mg/dL (1.8-2.4); POTASSIUM 3.2 mmol/L (3.5-5.1)
[2021-03-21] MEDS ORDERED: MAGNESIUM SULFATE 1GM 100 ML IV ONE (10:30)
[2021-03-21] MEDS: INSULIN LISPRO 300 UNITS/3 ML VIAL. SQ SCH ×3 (10:35→17:26)
--- NOTE | 2021-03-21 13:55 | CARD ---
MR#: [id number] Date of Study: 03/21/2021 Ordering Physician: RUY BROOKS, Referring Physician: RUY BROOKS, Tech: [facility] APPROVED REPORT EXAM: Two-dimensional and M-mode echocardiogram with Doppler and color Doppler. Other Information Quality : AverageHR: 71bpm INDICATION COPD Dyspnea Elevated Troponin RISK FACTORS Hypertension Diabetes 2D DIMENSIONS Left Atrium(2D)3.6 (1.6-4.0cm)IVSd1.2 (0.7-1.1cm) Aortic Root(2D)3.3 (2.0-3.7cm)LVDd5.3 (3.9-5.9cm) LVOT Diameter2.0 (1.8-2.4cm)PWd1.2 (0.7-1.1cm) LVDs3.3 (2.5-4.0cm)FS (%) 37.9 % SV90.0 mlLVEF(%)67.6 (>50%) Aortic Valve AoV Peak Lito.326.7cm/sAoV VTI60.1cm AO Peak GR.42.7mmHgLVOT Peak Lito.141.0cm/s LVOT VTI 33.83cmAO Mean GR.19mmHg JOSHUA (VMAX)1.67py8WMO (VTI)1.75cm2 Mitral Valve MV E Drnydurc167.2cm/sMV E Peak Gr.5mmHg MV DECEL [id number] A Mptbmopt37.5cm/s MV E Mean Gr.1mmHgE/A Ratio1.2 Pulmonary Valve PV Peak Dlhovrpb53.2cm/sPV Peak Grad.3mmHg Tricuspid Valve TR P. [id number]/sRAP [id number] TR Peak Gr.25wkKcOBQJ56dkCm Pulmonary Vein S1 Gjbrpxpt72.0cm/sD2 Zmsiodov10.9cm/s LEFT VENTRICLE The left ventricle is normal size. There is mild to moderate concentric left ventricular hypertrophy. The left ventricular systolic function is normal. The Ejection Fraction is 60-65%. There is normal L V segmental wall motion. Transmitral Doppler flow pattern is Grade I-abnormal relaxation pattern. RIGHT VENTRICLE The right ventricle is normal size. There is normal right ventricular wall thickness. The right ventr icular systolic function is normal. ATRIA The left atrium is borderline dilated. The right atrium size is normal. The interatrial septum is int act with no evidence for an atrial septal defect or patent foramen ovale as noted on 2-D or Doppler i maging. AORTIC VALVE The aortic valve is thickened and calcified Doppler and Color Flow revealed no significant aortic reg urgitation. There is mild valvular aortic stenosis. MITRAL VALVE The mitral valve is normal in structure and function. There is no evidence of mitral valve prolapse. There is no mitral valve stenosis. Doppler and Color Flow revealed no mitral valve regurgitation note d. TRICUSPID VALVE The tricuspid valve is normal in structure and function. Doppler and Color Flow revealed trace tricus pid regurgitation with an estimated PAP of 38 mmHg. There is no tricuspid valve stenosis. PULMONIC VALVE The pulmonary valve is normal in structure and function. Doppler and Color Flow revealed trace pulmon ic valvular regurgitation. GREAT VESSELS The aortic root is normal in size. The ascending aorta is normal in size. The IVC is normal in size a nd collapses >50% with inspiration. PERICARDIAL EFFUSION There is no evidence of significant pericardial effusion. Critical Notification Critical Value: No <Conclusion> The left ventricular systolic function is normal. The Ejection Fraction is 60-65%. There is normal LV segmental wall motion. There is mild valvular aortic stenosis. Trace tricuspid regurgitation with an estimated PAP of 38 mmHg. There is no evidence of significant pericardial effusion. Signed by : Torres Gamboa, Electronically Approved : 03/21/2021 13:55:28
[2021-03-21] MEDS: LABETALOL 20 MG/4 ML DISP.SYRIN. IVP PRN (19:19)
--- NOTE | 2021-03-21 19:35 | PN ---
DATE: 03/21/2021 ATTENDING PHYSICIAN: Dr. Vivar. SUBJECTIVE: The patient is alert, sober. She is comfortable. OBJECTIVE FINDINGS: VITAL SIGNS: Blood pressure this morning is 160/79, pulse is 60 and regular. She is afebrile. Oxygen saturation 96% on 3 liters by nasal cannula. HEENT: Head is without trauma. Pupils are reactive. Sclerae nonicteric. Oropharynx clear. NECK: Supple. LUNGS: Coarse rhonchi bilaterally. CARDIOVASCULAR: Showed distant heart tones. No gallops. ABDOMEN: Soft. No guarding. EXTREMITIES: Without edema. NEUROLOGIC FINDINGS: Focally intact. Speech is fluent. PERTINENT LABORATORY STUDIES: Her potassium this morning is still 3.2 mEq per liter. Creatinine is adequate. Hemoglobin is 11.9 g/dL. ASSESSMENT: 1. A 60-year-old female with acute respiratory failure and hypoxemia. 2. Bilateral infiltrates consistent with community-acquired pneumonia. 3. Type 2 diabetes mellitus, insulin-dependent, with poor control. 4. Polysubstance abuse. 5. Noncompliance to meds. 6. Underlying depression with anxiety. 7. Refractory hypokalemia due to hypomagnesemia. PLAN: 1. Lisinopril increased to 40 mg daily for blood pressure. 2. Echocardiogram to be scheduled later today. 3. Diet as tolerated. 4. Potassium and magnesium replacement. 5. Serial chemistries. 6. Tentative discharge in the next day or [address] KAREN DR: Mabel TID: [id number] CC: KACIE ASCENCIO MD
[2021-03-21] MEDS ORDERED: QUEtiapine 25 MG TABLET. PO SCH (21:00)
[2021-03-21] MEDS: AMOXICILLIN/K CLAV 875/125MG TABLET. PO SCH (21:15)
[2021-03-21] MEDS: INSULIN GLARGINE SYRINGE. SQ SCH (21:16)
[2021-03-22 05:00] VITALS: BP 173/77
--- NOTE | 2021-03-22 08:10 | PDOC ---
RUY BROOKS THERAPIST OCCUPATIONAL 03/22/21 0810: CARDIO Progress Notes Date & Time Date of Service DATE: 03/22/21 TIME: 08:10 Time of Evaluation 08:10 Subjective Notes No chest pain, palpitations, dizziness, diaphoresis Vitals Vitals Vital Signs Date Time Temp Pulse Resp B/P (MAP) Pulse Ox O2 Delivery O2 Flow Rate FiO2 03/22/21 05:00 97.7 68 18 173/77 (109) 94 Room Air 03/21/21 12:00 3.0 Weight Weight [ ] Input and Output I.O. Intake and Output 03/22/21 07:00 Intake Total 380 ml Balance 380 ml Intake Oral 380 ml # Voids 2 # Bowel Movements 1 Laboratory Labs Laboratory Tests Test 03/20/21 08:50 03/20/21 11:52 03/20/21 16:54 03/20/21 19:54 Sodium Level 141 mmol/L (136-145) Potassium Level 2.8 mmol/L (3.5-5.1) Chloride Level 105 mmol/L (98-107) Carbon Dioxide Level 21 mmol/L (21-32) Anion Gap 15 (6-14) Blood Urea Nitrogen 10 mg/dL (7-20) Creatinine 0.8 mg/dL (0.6-1.0) Estimated GFR (Cockcroft-Gault) 72.9 Glucose Level 205 mg/dL (70-99) Calcium Level 8.0 mg/dL (8.5-10.1) Magnesium Level 1.2 mg/dL (1.8-2.4) Glucose (Fingerstick) 186 mg/dL (70-99) 180 mg/dL (70-99) 200 mg/dL (70-99) Test 03/21/21 07:56 03/21/21 08:50 03/21/21 12:06 03/21/21 17:13 Glucose (Fingerstick) 213 mg/dL (70-99) 241 mg/dL (70-99) 206 mg/dL (70-99) Sodium Level 138 mmol/L (136-145) Potassium Level 3.2 mmol/L (3.5-5.1) Chloride Level 100 mmol/L (98-107) Carbon Dioxide Level 26 mmol/L (21-32) Anion Gap 12 (6-14) Blood Urea Nitrogen 8 mg/dL (7-20) Creatinine 0.9 mg/dL (0.6-1.0) Estimated GFR (Cockcroft-Gault) 63.7 Glucose Level 250 mg/dL (70-99) Calcium Level 8.2 mg/dL (8.5-10.1) Magnesium Level 1.7 mg/dL (1.8-2.4) Test 03/21/21 20:24 03/22/21 07:49 Glucose (Fingerstick) 201 mg/dL (70-99) 241 mg/dL (70-99) Microbiology Micro Microbiology 03/16/21 Urine Culture - Final, Complete Physical Exams HEENT: Neck Supple W Full Motion Chest: Symmetric Lungs: Clear to Auscultation Heart: RRR Abdomen: Soft N/T Extremities: No Edema Neurology: alert, oriented, follow commands Assessment Assessment 1. Slight troponin elevation; high sensitivity trop peak 163. most probably type II, demand ischemia. CP free. EKG without acute changes. Echo with preserved LV systolic function. 2. Acute respiratory failure secondary to PNA and COPD. ? aspiration 3. Diabetes, II; uncontrolled. 5. Hypertension; remains labile. 6. Hypokalemia, hypomagnesemia; replaced. 6. Metabolic encephalopathy, improved 7. Noncompliance, substance abuse. UDS + marijuana. 8. Mild valvular Recommendations ASA therapy Add amlodipine for BP control Ischemic evaluation could be considered as an outpatient. Ongoing lung optimization, treatment of PNA Supportive care VIVIEN SINGH MD 03/22/21 1908: CARDIO Progress Notes Plan Plan Patient seen and examined. Agree with above MANAGER OF SUSTAINABILITY note. Supportive care. RUY BROOKS APRN Mar 22, 2021 08:10 VIVIEN SINGH MD Mar 22, 2021 19:08
[2021-03-22] MEDS: AMOXICILLIN/K CLAV 875/125MG TABLET. PO SCH ×2 (08:44→20:26)
[2021-03-22] MEDS: LACTOBACILLUS RHAMNOSUS GG 1 CAPSULE. PO SCH ×2 (08:44→20:28)
[2021-03-22] MEDS: LISINOPRIL 20 MG TABLET PO SCH (08:45)
[2021-03-22] MEDS: POTASSIUM CHLORIDE 20 MEQ TABLET.ER. PO SCH ×2 (08:45→20:27)
[2021-03-22] MEDS: NICOTINE 21MG PATCH. TD SCH (08:45)
[2021-03-22] MEDS: amLODIPine BESYLATE 5 MG TABLET PO SCH (08:47)
[2021-03-22] MEDS: ASPIRIN ENTERIC COATED 81 MG TABLET.DR. PO SCH (08:47)
[2021-03-22] MEDS: INSULIN LISPRO 300 UNITS/3 ML VIAL. SQ SCH ×3 (08:54→17:00)
[2021-03-22 10:30] LABS: BASO % 1 % (0-3); EOS # 0.3 x10^3/uL (0.0-0.7); EOS % 4 % (0-3); HEMATOCRIT 32.4 % (36.0-47.0); HEMOGLOBIN 10.8 g/dL (12.0-15.5); LYMPH # 1.3 x10^3/uL (1.0-4.8); LYMPH % 16 % (24-48); MEAN CORPUSCULAR HEMOGLOBIN 32 pg (25-35); MEAN CORPUSCULAR HGB CONC 33 g/dL (31-37); MEAN CORPUSCULAR VOLUME 96 fL (79-100); MONO # 0.4 x10^3/uL (0.0-1.1); MONO % 5 % (0-9); NEUT # 5.8 x10^3uL (1.8-7.7); NEUT % 74 % (31-73); PLATELET COUNT 258 x10^3/uL (140-400); RED BLOOD COUNT 3.37 x10^6/uL (3.50-5.40); RED CELL DISTRIBUTION WIDTH 14.1 % (11.5-14.5); WHITE BLOOD COUNT 7.8 x10^3/uL (4.0-11.0)
[2021-03-22 10:33] VITALS: BP 153/77
[2021-03-22 10:54] LABS: ALBUMIN 1.9 g/dL (3.4-5.0); ALBUMIN/GLOBULIN RATIO 0.5 (1.0-1.7); CREATININE 0.7 mg/dL (0.6-1.0); GFR 85.1; TOTAL BILIRUBIN 0.5 mg/dL (0.2-1.0); TOTAL PROTEIN 6.1 g/dL (6.4-8.2)
[2021-03-22 11:41] LABS: POTASSIUM 3.6 mmol/L (3.5-5.1)
[2021-03-22 14:34] VITALS: BP 149/86
[2021-03-22] MEDS: MORPHINE SULFATE 4 MG/ML DISP.SYRIN. IV PRN (15:33)
[2021-03-22 19:00] VITALS: BP 189/77
[2021-03-22] MEDS: guaiFENesin DM 200MG/20MG 10 ML SYRUP PO PRN (20:26)
[2021-03-22] MEDS: HALOPERIDOL LACT 5 MG/ML VIAL. IVP PRN (20:27)
[2021-03-22] MEDS: INSULIN GLARGINE SYRINGE. SQ SCH (20:33)
[2021-03-22 23:00] VITALS: BP 157/75
--- NOTE | 2021-03-22 23:38 | PN ---
SUBJECTIVE: The patient is resting, slightly propped up in bed, in no apparent distress. She continued to have cough, productive and shortness of breath when I examined her; however, she is afebrile. She is apparently more awake, alert, was able to participate with physical therapy today. PHYSICAL EXAMINATION: GENERAL: When I examined her, she looked well and was clearly in no apparent distress. She was pale, but not jaundiced or cyanosed. No lymphadenopathy, no thyromegaly, no jugular venous distention, no limb edema. VITAL SIGNS: Her heart rate was 74, blood pressure was 149/86, temperature was 97, respiratory rate was 18 and oxygen saturation was 96% on room air. HEAD, EYES, EARS, NOSE, AND THROAT: Showed normocephalic, atraumatic. NECK: Supple. HEART: Showed normal first and second heart sounds. No gallop, rub or murmur. CHEST: Clear to auscultation, no crepitation or rhonchi. ABDOMEN: Distended, soft, nontender. NEUROLOGIC: She was grossly intact. Her intake over the last 24 hours was 2000, output was 2850. LABORATORY DATA: Showed a white cell count 7800, hemoglobin 11, hematocrit 32, MCV 96 and platelet count 258,000. Her serum sodium was 140, potassium 3.6, chloride 103, bicarbonate 22, anion gap of 15, BUN 8, creatinine 0.7. Estimated GFR was 85 mL per minute. Her glucose was 157, calcium was 8. Total bilirubin, AST, ALT, alkaline phosphatase were normal. Total protein 6.1, albumin was 1.9. ASSESSMENT: 1. Acute hypoxic respiratory failure secondary to pneumonia and chronic obstructive pulmonary disease exacerbation, improving. 2. Type 2 diabetes mellitus, reasonably controlled. 3. Hypertension. 4. Hypokalemia and hypomagnesemia, resolved. 5. Metabolic encephalopathy, resolved. 6. Mild valvular aortic stenosis. 7. Noncompliance and substance abuse. Her urine drug screen was positive for marijuana. PLAN: To continue with current medication. She will be discharged home tomorrow. MARIBELL DR: Andi TID: [id number]
[2021-03-23 05:00] VITALS: BP 181/85
[2021-03-23 08:34] VITALS: BP 181/85
[2021-03-23] MEDS: ASPIRIN ENTERIC COATED 81 MG TABLET.DR. PO SCH (08:34)
[2021-03-23] MEDS: amLODIPine BESYLATE 5 MG TABLET PO SCH (08:34)
[2021-03-23] MEDS: LISINOPRIL 20 MG TABLET PO SCH (08:34)
[2021-03-23] MEDS: AMOXICILLIN/K CLAV 875/125MG TABLET. PO SCH (08:34)
[2021-03-23] MEDS: POTASSIUM CHLORIDE 20 MEQ TABLET.ER. PO SCH (08:34)
[2021-03-23] MEDS: LACTOBACILLUS RHAMNOSUS GG 1 CAPSULE. PO SCH (08:34)
[2021-03-23] MEDS: NICOTINE 21MG PATCH. TD SCH (08:35)
[2021-03-23] MEDS: INSULIN LISPRO 300 UNITS/3 ML VIAL. SQ SCH (08:39)
--- NOTE | 2021-03-23 08:54 | PDOC ---
RUY BROOKS DYE TANK TENDER 03/23/21 0854: CARDIO Progress Notes Date & Time Date of Service DATE: 03/23/21 TIME: 08:53 Time of Evaluation 08:10 Subjective Notes No chest pain, shortness of breath. Vitals Vitals Vital Signs Date Time Temp Pulse Resp B/P (MAP) Pulse Ox O2 Delivery O2 Flow Rate FiO2 03/23/21 08:34 67 181/85 03/23/21 05:00 97.7 18 93 Room Air 03/22/21 08:45 2.0 Weight Weight [ ] Laboratory Labs Laboratory Tests Test 03/21/21 12:06 03/21/21 17:13 03/21/21 20:24 03/22/21 07:49 Glucose (Fingerstick) 241 mg/dL (70-99) 206 mg/dL (70-99) 201 mg/dL (70-99) 241 mg/dL (70-99) Test 03/22/21 10:00 03/22/21 11:33 03/22/21 16:31 03/22/21 20:28 White Blood Count 7.8 x10^3/uL (4.0-11.0) Red Blood Count 3.37 x10^6/uL (3.50-5.40) Hemoglobin 10.8 g/dL (12.0-15.5) Hematocrit 32.4 % (36.0-47.0) Mean Corpuscular Volume 96 fL (79-100) Mean Corpuscular Hemoglobin 32 pg (25-35) Mean Corpuscular Hemoglobin Concent 33 g/dL (31-37) Red Cell Distribution Width 14.1 % (11.5-14.5) Platelet Count 258 x10^3/uL (140-400) Neutrophils (%) (Auto) 74 % (31-73) Lymphocytes (%) (Auto) 16 % (24-48) Monocytes (%) (Auto) 5 % (0-9) Eosinophils (%) (Auto) 4 % (0-3) Basophils (%) (Auto) 1 % (0-3) Neutrophils # (Auto) 5.8 x10^3uL (1.8-7.7) Lymphocytes # (Auto) 1.3 x10^3/uL (1.0-4.8) Monocytes # (Auto) 0.4 x10^3/uL (0.0-1.1) Eosinophils # (Auto) 0.3 x10^3/uL (0.0-0.7) Basophils # (Auto) 0.0 x10^3/uL (0.0-0.2) Sodium Level 140 mmol/L (136-145) Potassium Level 3.6 mmol/L (3.5-5.1) Chloride Level 103 mmol/L (98-107) Carbon Dioxide Level 22 mmol/L (21-32) Anion Gap 15 (6-14) Blood Urea Nitrogen 8 mg/dL (7-20) Creatinine 0.7 mg/dL (0.6-1.0) Estimated GFR (Cockcroft-Gault) 85.1 BUN/Creatinine Ratio 11 (6-20) Glucose Level 257 mg/dL (70-99) Calcium Level 8.0 mg/dL (8.5-10.1) Total Bilirubin 0.5 mg/dL (0.2-1.0) Aspartate Amino Transf (AST/SGOT) 25 U/L (15-37) Alanine Aminotransferase (ALT/SGPT) 26 U/L (14-59) Alkaline Phosphatase 104 U/L (46-116) Total Protein 6.1 g/dL (6.4-8.2) Albumin 1.9 g/dL (3.4-5.0) Albumin/Globulin Ratio 0.5 (1.0-1.7) Glucose (Fingerstick) 251 mg/dL (70-99) 156 mg/dL (70-99) 247 mg/dL (70-99) Test 03/23/21 07:37 Glucose (Fingerstick) 240 mg/dL (70-99) Microbiology Micro Microbiology 03/16/21 Urine Culture - Final, Complete Physical Exams HEENT: Neck Supple W Full Motion Chest: Symmetric Lungs: Clear to Auscultation Heart: RRR Abdomen: Soft N/T Extremities: No Edema Neurology: alert, oriented, follow commands Assessment Assessment 1. Slight troponin elevation; high sensitivity trop peak 163. most probably type II, demand ischemia. CP free. EKG without acute changes. Echo with preserved LV systolic function. 2. Acute respiratory failure secondary to PNA and COPD. ? aspiration 3. Diabetes, II; uncontrolled. 5. Hypertension; remains labile. 6. Hypokalemia, hypomagnesemia; replaced. 6. Metabolic encephalopathy, improved 7. Noncompliance, substance abuse. UDS + marijuana. 8. Mild valvular Recommendations ASA therapy Ischemic evaluation could be considered as an outpatient. Lung optimization, treatment of PNA Supportive care VIVIEN SINGH MD 03/24/21 2246: RUY BROOKS APRN Mar 23, 2021 08:54 VIVIEN SINGH MD Mar 24, 2021 22:46
[2021-03-23] MEDS ORDERED: AMOX1TAB61 PO (11:06)
[2021-03-23] MEDS ORDERED: HYDR-2155 PO (11:06)
[2021-03-23] MEDS ORDERED: CIPR10DR AS (11:06)
--- NOTE | 2021-03-23 11:30 | DISCH ---
HOME HEALTH DISCHARGE/MEDS DISCHARGE INFORMATION: Discharge Date: Mar 23, 2021 Final Diagnosis: Problems Medical Problems: (1) Altered mental status Status: Acute (2) ARF (acute renal failure) Status: Acute (3) Aspiration pneumonia Status: Acute (4) Hyperglycemia Status: Acute Condition on Discharge: Stable CODE STATUS: Code Status: Full HOME HEALTH: Face to Face: I certify this patient is under my care and that I, or a nurse practitioner or physician's marketing operations assistant working with me, had a face to face encounter that meets the physician face to face encounter requirements with this patient on 03/23/2021 Medical Condition(s): Pneumonia [facility] For: Medication Management Physical Therapy For: Evalulation/Treatment Occupational Therapy For: Evaluation/Treatment POST DISCHARGE ORDERS: Activity Instructions for Disc: Activity as tolerated DIET AFTER DISCHARGE: Cardiac CERTIFICATION STATEMENT: Certification Statement: Based on the above finding, I certify that this patient is confined to the home and needs intermittent longterm care, physical therapy and/or speech therapy, or continues to need occupational therapy.~ This patient is under my care, and I have initiated the establishment of the plan of care.~ This patient will be followed by myself or a community physician who will periodically review the plan of care. DISCHARGE MEDICATIONS: Home Meds Active Scripts Ciprofloxacin/Hydrocortisone (CIPRO HC OTIC SUSPENSION) 10 Ml Drops.susp, 3 DROP BID for otitis externa for 7 Days, #10 ML Prov:FRANC ROONEY MD 03/23/21 Hydrocodone Bit/Acetaminophen (HYDROCODONE-APAP 5-325 ) 1 Each Tablet, 1 TAB PO PRN Q6HRS PRN for PAIN for 7 Days, #28 TAB 0 Refills Prov:FRANC ROONEY MD 03/23/21 Amoxicillin/Potassium Clav (AUGMENTIN 875-125 TABLET) 1 Each Tablet, 1 TAB PO BID for cap for 7 Days, #14 TAB 0 Refills Prov:FRANC ROONEY MD 03/23/21 Reported Medications Metformin Hcl (METFORMIN HCL ER) 500 Mg Tab.er.24h, 1 TAB PO BID for diabetes 03/19/21 Trazodone Hcl (TRAZODONE HCL) 50 Mg Tablet, 1 TAB PO QHS for insomnia 03/19/21 Pantoprazole Sodium (PANTOPRAZOLE SODIUM) 20 Mg Tablet.dr, 1 TAB PO DAILY for gerd 03/19/21 Quinapril Hcl (QUINAPRIL HCL) 5 Mg Tablet, 1 TAB PO DAILY for htn 03/19/21 [place] Carbonate (LITHIUM CARBONATE) 300 Mg Capsule, 1 CAP PO TID for mood 03/19/21 Buspirone Hcl (BUSPIRONE HCL) 10 Mg Tablet, 1 TAB PO BID for mood 03/19/21 Escitalopram Oxalate (Escitalopram Oxalate) 20 Mg Tablet, 1 TAB PO DAILY for depression 03/19/21 Levothyroxine Sodium (LEVOTHYROXINE SODIUM) 75 Mcg Tablet, 1 TAB PO DAILY for thyroid 03/19/21 Lurasidone Hcl (LATUDA) 40 Mg Tablet, 1 TAB PO QHS for bipolar 03/19/21 Discontinued Scripts Hydrocodone Bit/Acetaminophen (HYDROCODONE-APAP 5-325 ) 1 Each Tablet, 1 TAB PO PRN Q6HRS PRN for PAIN for 3 Days, #12 TAB 0 Refills Prov:VICENTE MANZANO DIETETIC TECHNICIAN 12/30/20 Hydrocodone Bit/Acetaminophen (NORCO 5-325 TABLET) 1 Each Tablet, 1-2 TAB PO PRN Q6HRS PRN for PAIN, #14 TAB Prov:MIESHA TALAVERA MD 12/02/15 FRANC ROONEY MD Mar 23, 2021 11:30
== END 2021-03-23 12:03 | disposition home health service (06) | DRG 177 ==
LOC: ER 16:27 → ER HOLD 03-18 09:09 → ICU 03-19 02:55 → 1 SOUTH 03-21 15:29
PROVIDERS: ADMIT Hospitalist; ATTEND Hospitalist
DX: J15.6 Pneumonia due to other Gram-negative bacteria (principal); G93.41 Metabolic encephalopathy; J96.01 Acute respiratory failure with hypoxia; N17.0 Acute kidney failure with tubular necrosis; I24.8 Other forms of acute ischemic heart disease; J44.0 Chronic obstructive pulmonary disease with (acute) lower respiratory infection; J44.1 Chronic obstructive pulmonary disease with (acute) exacerbation; J15.9 Unspecified bacterial pneumonia; E11.22 Type 2 diabetes mellitus with diabetic chronic kidney disease; E11.65 Type 2 diabetes mellitus with hyperglycemia; E83.42 Hypomagnesemia; E87.6 Hypokalemia; F03.90 Unspecified dementia, unspecified severity, without behavioral disturbance, psychotic disturbance, mood disturbance, and anxiety; F12.90 Cannabis use, unspecified, uncomplicated; F17.200 Nicotine dependence, unspecified, uncomplicated; F31.9 Bipolar disorder, unspecified; F41.8 Other specified anxiety disorders; I12.9 Hypertensive chronic kidney disease with stage 1 through stage 4 chronic kidney disease, or unspecified chronic kidney disease; I35.0 Nonrheumatic aortic (valve) stenosis; N18.9 Chronic kidney disease, unspecified; Z79.4 Long term (current) use of insulin; Z82.49 Family history of ischemic heart disease and other diseases of the circulatory system; Z91.14 Patient's other noncompliance with medication regimen; Z91.19 Patient's noncompliance with other medical treatment and regimen; Z20.822 Contact with and (suspected) exposure to COVID-19; J69.0 Pneumonitis due to inhalation of food and vomit
CPT/HCPCS: 36415; 51702; 70450; 71045; 74176; 80048; 80053; 80307; 81001; 82947; 83735; 84484; 85007; 85025; 87086; 87426; 87804; 93005; 93306; 96361; 96365; 96372; 96375; 96376; J0295; J0696; J1630; J1815; J2060; J2250; J2270; J3475; J3480; J3490; J7042; J7120; U0003; 97110; 97116; 97530; 99285-25; J7030

== ENCOUNTER 2021-06-05 21:59 | Emergency (ER) | payer MEDICARE ==
[~2021-06-05] VITALS: Ht 170.2 cm; Wt 79.6 kg
[~2021-06-05 21:59] MED LIST changes: +AMOX1TAB61 PO; +BUSP10TA PO; +CIPR10DR AS; +ESCI20TA8 PO; +LEVO75TA5 PO; +LITH300C PO; +LURA40TA2 PO; +METF-658 PO; +PANT20TA4 PO; +QUIN5TAB13 PO; +TRAZ-120 PO
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
--- NOTE | 2021-06-05 22:43 | RAD ---
PQRS Compliance Statement: One or more of the following individualized dose reduction techniques were utilized for this examinat ion: 1. Automated exposure control 2. Adjustment of the mA and/or kV according to patient size 3. Use of iterative reconstruction technique CT head without contrast 06/05/2021 10:24 PM INDICATION: Dizzy COMPARISON: CT head 03/16/2021 TECHNIQUE: Multiple axial CT images of the head were obtained from skull base through the vertex with out intravenous contrast. FINDINGS: Head: Right frontal craniotomy changes are present. No significant scalp abnormality. Ventricles, sulci and basal cisterns are within normal limits. Low-attenuation in the periventricular white matter is suggestive of chronic small vessel ischemic changes. There is no hydrocephalus. Melo -white matter differentiation is normal. There is no acute intracranial hemorrhage. There is no mass, mass effect or midline shift. Posterior fossa is normal in appearance. Visualized portions of the orbits are normal. Mild mucosal thickening left maxillary sinus. Improved aeration of the paranasal sinuses since the prior examination Mastoid air cells are well aerated. IMPRESSION: No acute intracranial hemorrhage. Low-attenuation in the periventricular white matter is suggestive of chronic small vessel ischemic ch anges. Right frontal craniotomy changes are identified. Electronically signed by: Tenisha Braun MD (06/05/2021 10:41 PM) MIKEY
--- NOTE | 2021-06-05 22:47 | RAD ---
EXAM: CHEST 1 VIEW History: Cardiac workup COMPARISON: 03/18/2021 TECHNIQUE: Single portable radiograph of the chest FINDINGS: The cardiac silhouette is unremarkable. Mild right hilar prominence. Mild bibasilar lung a irspace opacities IMPRESSION: 1. Mild bibasilar lung airspace opacities likely atelectasis or infiltrates. 2. Mild right hilar prominence again identified but less prominent compared to prior exam. Consider follow-up CT chest. Electronically signed by: Giovanni Wan MD (06/05/2021 10:44 PM) [id number]
[2021-06-05 23:14] LABS: BASO # 0.1 x10^3/uL (0.0-0.2); BASO % 1 % (0-3); EOS # 0.4 x10^3/uL (0.0-0.7); EOS % 3 % (0-3); HEMATOCRIT 40.1 % (36.0-47.0); HEMOGLOBIN 13.2 g/dL (12.0-15.5); LYMPH # 3.2 x10^3/uL (1.0-4.8); LYMPH % 27 % (24-48); MEAN CORPUSCULAR HEMOGLOBIN 30 pg (25-35); MEAN CORPUSCULAR HGB CONC 33 g/dL (31-37); MEAN CORPUSCULAR VOLUME 91 fL (79-100); MONO # 0.7 x10^3/uL (0.0-1.1); MONO % 6 % (0-9); NEUT # 7.6 x10^3uL (1.8-7.7); NEUT % 63 % (31-73); PLATELET COUNT 316 x10^3/uL (140-400); RED BLOOD COUNT 4.42 x10^6/uL (3.50-5.40); RED CELL DISTRIBUTION WIDTH 14.4 % (11.5-14.5)
[2021-06-05 23:25] LABS: CALCIUM 10.1 mg/dL (8.5-10.1); GFR 56.4; POTASSIUM 4.1 mmol/L (3.5-5.1)
[2021-06-05 23:30] LABS: ALBUMIN 3.8 g/dL (3.4-5.0); TOTAL BILIRUBIN 0.6 mg/dL (0.2-1.0); TOTAL PROTEIN 7.8 g/dL (6.4-8.2)
--- NOTE | 2021-06-05 23:48 | EKG ---
[address] [address] Test Date: 2021-06-05 Test Time: 22:19:31 Pat Name: MARCELO RUSH Department: Room: Gender: F Fancy Stitcher: KAN : 1960 Requested By: JANA JEREZ Order Number: [id number] Reading MD: Measurements Intervals [place] Rate: 52 P: -46 IL: 154 QRS: 16 QRSD: 92 T: 38 QT: 476 QTc: 449 Interpretive Statements SINUS RHYTHM NORMAL ECG RI6.02 No previous ECG available for comparison
[2021-06-06 00:03] LABS: BARBITURATES NEG (NEG); BENZODIAZEPINES NEG (NEG); CANNABINOIDS POS (NEG); COCAINE NEG (NEG); METHADONE NEG (NEG); OPIATES NEG (NEG); PHENCYCLIDINE NEG (NEG)
[2021-06-06 00:06] LABS: AMPHETAMINE/METHAMPHETAMINE NEG (NEG)
[2021-06-06 00:12] LABS: BACTERIA,URINE FEW /HPF (0-FEW); CLARITY,URINE CLEAR; COLOR,URINE YELLOW; GLUCOSE,URINE NEG (NEG); HYALINE CASTS, URINE MOD /HPF; NITRITE,URINE NEG (NEG); SQUAMOUS EPITHELIAL CELL,UR MOD /LPF; UROBILINOGEN,URINE 0.2 mg/dL (0.2 mg/dL)
[2021-06-06 00:34] VITALS: BP 107/57
== END 2021-06-05 23:56 | disposition home or self-care (01) ==
LOC: ER 21:59
DX: R55 Syncope and collapse (principal); R42 Dizziness and giddiness; F03.90 Unspecified dementia, unspecified severity, without behavioral disturbance, psychotic disturbance, mood disturbance, and anxiety; E11.9 Type 2 diabetes mellitus without complications
CPT/HCPCS: 36415; 70450; 71045; 80053; 80178; 80307; 81001; 82947; 83735; 84443; 84484; 85025; 87086; 93005; 99285